=== PATIENT | female | born 1995 | race Caucasian/White ===

== ENCOUNTER 2021-04-06 19:22 | Emergency (ER) | payer OTHER, SELFPAY ==
[2021-04-06 19:04] VITALS: BP 153/80; PULSE 135; RESP 16; TEMP 37.6; O2SAT 96; BMI 21.6
--- NOTE | 2021-04-06 19:12 | HMH.EDGENADL ---
ED Disposition Clinical Impression: Right sided abdominal pain, Pyelonephritis Disposition: Left Against Medical Advice Condition on Discharge: Serious Instructions: DI for Acute Abdominal Pain Additional Instructions: Advised to follow-up with client services account manager and primary care provider as soon as possible, return to the emergency department if worsening or if desiring further treatment. Referrals: Provider,Referral, [Primary Care Provider] - - Critical Care Critical Care Time: No Attestation: On , the high probability of a clinically significant, sudden or life threatening deterioration of the following system(s) required my full and direct attention, intervention and personal management. The time I documented below is in addition to time spent performing reported procedures but includes the following listed in this critical care notation. Medical Decision Making - Corey Inquiry Pt receiving controlled substance: No Vital Signs: 04/06/21 19:04 04/06/21 19:45 Temperature 99.6 F 97.7 F Temperature Source Oral Oral Pulse Rate 85 Pulse Rate [Right Radial] 135 H Respiratory Rate 16 18 Blood Pressure 124/70 Blood Pressure [Right Arm] 153/80 H Blood Pressure Mean [Right Arm] 104 Blood Pressure Source Automatic Cuff Blood Pressure Source [Right Arm] Automatic Cuff Blood Pressure Position Sitting Blood Pressure Position [Right Arm] Supine 02 Sat by Pulse Oximetry 96 Oxygen Delivery Method Room Air Room Air - Lab Data Lab Results 04/06/21 19:08: Urine Color Dk yellow, Urine Appearance Turbid, Urine pH 5.5, Ur Specific [place] >= 1.030, Urine Protein 2+, Urine Glucose (UA) Negative, Urine Ketones Trace, Urine Blood 3+, Urine Nitrate Positive, Urine Bilirubin 2+ A, Urine Urobilinogen 0.2, Ur Leukocyte Esterase Trace, Urine RBC 20-50, Urine WBC 50-100, Ur Squamous Epith Cells Tntc, Urine Bacteria 4+ Orders (Tests/Meds): ED MEDICATIONS Generic Name Dose Route Start Last Admin Trade Name Freq PRN Reason Stop Dose Admin Ceftriaxone Sodium 1 gm/ 50 mls @ 100 mls/hr 04/06/21 19:45 Sodium Chloride IV 04/20/21 19:44 Q24H MINESH ORDERS Category Date Time Status Chest XR 2 view (NOT portable) [XR chest 2V] Stat Exams 04/06/21 19:21 Ordered Beta HCG, Quant [HCG,Quantitative] Stat Lab 04/06/21 19:30 Received C-Reactive Protein Stat Lab 04/06/21 19:30 Received Drug Screen,Urine Stat Lab 04/06/21 19:08 Received Erythrocyte Sedimentation Rate Stat Lab 04/06/21 19:30 Received Ethanol [Ethyl Alcohol] Stat Lab 04/06/21 19:30 Received Lactic Acid Stat Lab 04/06/21 19:30 Received Lipase Stat Lab 04/06/21 19:30 Received Procalcitonin Stat Lab 04/06/21 19:30 Received Urine , HCG Qual. Stat Lab 04/06/21 19:08 Received Blood Culture Stat Micro 04/06/21 19:20 Ordered Urine Culture Stat Micro 04/06/21 19:08 Received Medical Decision Narrative: Nurse reports that the patient is demanding to leave. She is now stating that she is not , she states I lost the baby and it is my fault . She wants to sign out AGAINST MEDICAL ADVICE. At this point, the only laboratory result that has been obtained is urine analysis. I advised her of diagnosis of urinary tract infection, likely pyelonephritis. I advised her that in the face of this can be serious, life-threatening, threatening. I also advised her that she could have pneumonia, she has refused a chest x-ray at this point. I also advised her that she could have a tubal which also could be life-threatening in threatening. She says she understands all this. She is able to repeat all of these risks back to me, expresses understanding, and says she still wants to sign out AGAINST MEDICAL ADVICE. She does not want the antibiotics that have been ordered and she wants to leave now. General Adult HPI - General Chief complaint: Abdominal Pain Stated complaint: Abdominal Pain Time Se
[2021-04-06 19:19] LABS: Microscopic, Urine URINE MICROSCOPIC (MICROSCOPIC)
[2021-04-06 19:25] LABS: Appearance,Urine TURBID (Clear); Blood, Urine 3+ (Negative); Color,Urine DK YELLOW (Yellow); Glucose,Urine (UA) Negative (Negative); Ketones,Urine TRACE (Negative); Leukocyte Esterase,Urine TRACE (Negative); Nitrate,Urine POSITIVE (Negative); PH,Urine 5.5 (5.0-8.5); Protein,Urine 2+ (Negative); Specific Gravity, Urine >= 1.030 (1.005-1.030); Urobilinogen,Urine 0.2 EU/dl (0.2)
[2021-04-06 19:29] LABS: Bilirubin,Urine 2+ (Negative)
[2021-04-06 19:31] LABS: Bacteria,Urine 4+ /lpf; RBC,Urine 20-50 #/hpf (0-3); Squamous Epithelial Cell,Urine TNTC #/hpf (0-5); WBC,Urine 50-100 #/hpf (0-3)
[2021-04-06 19:36] LABS: Benzodiazepines Screen,Urine Negative ng/ml (<200)
[2021-04-06 19:39] LABS: Methadone Screen,Urine Negative ng/ml (<300); Opiate Screen,Urine Positive ng/ml (<300)
--- NOTE | 2021-04-06 19:39 | PC.NURSE ---
Pt went to Xray and informed Casandra from radiology that she does not want to do the chest xray and she is no longer and lost the baby and she just wants to leave. MD Jamarcus informed and speaking with pt at this time.
[2021-04-06 19:40] LABS: Phencyclidine Screen,Urine Negative ng/ml (<25)
[2021-04-06 19:45] VITALS: BP 124/70; PULSE 85; RESP 18; TEMP 36.5; O2SAT 98
--- NOTE | 2021-04-06 19:47 | PC.NURSE ---
pt refused to allow radiology perform chest xray, denied being stating she thinks she lost it a few weeks ago. pt is alert, oriented, verbal with clear speech. md at bedside discussing needs with patient for meds and testing. pt is adamant she must go ahead and leave and replies verbatim back to md with what is going on with her possibly. assisted pt by giving a blanket and roustabout hand socks. pt ambulated out of facility, calling a family member for a ride prior to leaving.
[2021-04-06 19:50] LABS: Lactic Acid 0.8 mmol/L (0.7-2.1)
[2021-04-06 19:52] LABS: Ethyl Alcohol < 10 mg/dl (0-10)
[2021-04-06 19:55] LABS: Urine Pregnancy, HCG Qual. Negative (Negative)
[2021-04-06 19:59] LABS: Barbiturates Screen,Urine Negative ng/ml (<200)
[2021-04-06 20:01] LABS: Cannabinoid Screen,Urine Positive ng/ml (<50)
[2021-04-06 20:02] LABS: Cocaine Screen,Urine Negative ng/ml (<300)
[2021-04-06 20:07] LABS: Lipase 30 U/L (23-300)
[2021-04-06 20:18] LABS: C-Reactive Protein 26.4 mg/L (0-4)
[2021-04-06 20:22] LABS: Procalcitonin 0.244 ng/mL (0.0-2.0)
[2021-04-06 20:23] LABS: Erythrocyte Sedimentation Rate 48 mm/hr (0-20)
[2021-04-06 20:35] LABS: HCG,Quantitative < 2 mIU/ml (0-5.42)
[2021-04-06 20:44] LABS: Amphetamine/Metha Screen,Urine Positive ng/ml (<1000)
== END 2021-04-06 19:49 | disposition left against medical advice (07) ==
PROVIDERS: Emergency Provider Emergency Medicine
DX: N10 Acute pyelonephritis (principal); B96.20 Unspecified Escherichia coli [E. coli] as the cause of diseases classified elsewhere
CPT/HCPCS: 80305; 81001; 81025; 83605; 83690; 84145; 84702; 85651; 86140; 87086; 87088; 87186; 99282

== ENCOUNTER 2022-05-08 19:06 | Emergency (ER) | payer OTHER, SELFPAY ==
--- NOTE | 2022-05-08 19:23 | XR_ITS ---
PROCEDURE INFORMATION: Exam: XR Left Wrist Exam date and time: 05/08/2022 8:23 PM Age: 27 years old Clinical indication: Swelling; Wrist; Left; Additional info: Swelling, pain, ivdu TECHNIQUE: Imaging protocol: Radiologic exam of the Left wrist. Views: 3 or more views. COMPARISON: No relevant prior studies available. FINDINGS: Bones/joints: No visible fracture or dislocation. Soft tissues: No radiopaque foreign body There is diffuse cellulitis along the distal forearm extending into the metacarpal region IMPRESSION: 1. There is diffuse cellulitis along the distal forearm extending into the metacarpal region. 2. No visible fracture or dislocation.
--- NOTE | 2022-05-08 19:23 | XR_ITS ---
PROCEDURE INFORMATION: Exam: XR Left Forearm Exam date and time: 05/08/2022 8:25 PM Age: 27 years old Clinical indication: Swelling; Arm, lower; Left; Additional info: Swelling, pain, ivdu TECHNIQUE: Imaging protocol: Radiologic exam of the Left forearm. Views: 2 views. COMPARISON: CR XR WRIST LT MIN 3V 05/08/2022 8:23 PM FINDINGS: Bones/joints: No visible fracture or dislocation. Soft tissues: There is diffuse cellulitis and soft tissue swelling about the wrist and forearm. No radiopaque foreign body IMPRESSION: 1. No visible fracture or dislocation. 2. Diffuse cellulitis about the wrist and forearm.
--- NOTE | 2022-05-08 19:25 | CT_ITS ---
PROCEDURE INFORMATION: Exam: CT Left Upper Extremity With Contrast, Forearm Exam date and time: 05/08/2022 8:50 PM Age: 27 years old Clinical indication: Swelling; Arm, lower; Left; Additional info: Infected arm ivdu TECHNIQUE: Imaging protocol: Computed tomography of the Left upper extremity with contrast. Exam focused on the forearm. Radiation optimization: All CT scans at this facility use at least one of these dose optimization techniques: automated exposure control; mA and/or kV adjustment per patient size (includes targeted exams where dose is matched to clinical indication); or iterative reconstruction. Contrast material: ISOVUE; Contrast volume: 70 ml; Contrast route: IV; COMPARISON: CR XR FOREARM LT 2V 05/08/2022 8:25 PM FINDINGS: Bones/joints: There is a large filling defect along a superficial vein overlying the radial forearm presumably the cephalic vein. No acute fracture. No osseous erosive lesions Soft tissues: Circumferential soft tissue swelling about the forearm and wrist. Other findings: No radiopaque foreign body. No discrete collection IMPRESSION: 1. Cephalic vein thrombophlebitis 2. Cellulitis about the forearm and wrist without discrete abscess.
[2022-05-08 19:26] VITALS: RESP 26; TEMP 38.3; O2SAT 100; BMI 23.8
--- NOTE | 2022-05-08 19:29 | HMH.EDGENADL ---
Discharge Plan Disposition Patient Disposition: Admitted As Inpatient Condition: Serious Chief Complaint: Skin/Abscess/Foreign Body Prescriptions Prescriptions: No Action buprenorphine-naloxone 1 EACH tablet, sublingual 1 each SL DAILY Clinical Impressions Clinical Impression: Infected forearm, IVDU (intravenous drug user) Instructions Patient Instructions: DI for Skin Abscess Discharge ED Provider: Yahir Garcia General Adult HPI <Brodie Dickerson MD - Last Filed: 05/08/22 20:25> General Chief complaint: Skin/Abscess/Foreign Body Stated complaint: ao 05/07bITE BY DARIO l HAND /ARM Time Seen by Provider: 05/08/22 19:29 History of Present Illness HPI narrative: Patient is a 27-year-old female with past medical history of chronic infection followed by infectious disease at [facility] with resultant sores on her arms, IV drug use who presents emergency department for evaluation of left forearm swelling. Onset was acute, after injecting ice into her left wrist. She has had resultant pain, erythema, swelling spreading up the dorsal aspect of her forearm and wrist with associated limited active range of motion at the wrist secondary to pain. Patient denies other acute symptomatology. She states that she has had previous MRSA infections. She has multiple sores scattered about her bilateral upper extremities and when questioned states that that is due to her infectious disease process. Related Data Home Medications Medication Instructions Recorded Confirmed buprenorphine 8 mg-naloxone 2 mg 1 each SL DAILY Opiod Addiction 04/06/21 04/06/21 sublingual tablet Allergies Allergy/AdvReac Type Severity Reaction Status Date / Time No Known Allergies Allergy Verified 04/06/21 19:13 [facility] <Brodie Dickerson MD - Last Filed: 05/08/22 20:25> [facility] Disclaimer: The information contained in this section may have been updated after the patient was seen, as this information can be updated by other users. Social History (Updated 05/08/22 @ 20:25 by Brodie Dickerson MD) Smoking Status: Current every day smoker alcohol intake: current current occupational status: unemployed Travel in the last 8 weeks: None <Brodie Dickerson MD - Last Filed: 05/08/22 20:25> ROS Obtained: Yes Systems reviewed as appropriate & no additional complaints except as documented Physical Exam <Brodie Dickerson MD - Last Filed: 05/08/22 20:25> General General appearance: alert and in no apparent distress Head Head exam: atraumatic and normocephalic Eye Eye exam: Present PERRL and EOMI ENT ENT exam: Present mucous membranes moist Neck Neck exam: Present normal inspection Chest Chest inspection: Present normal inspection and symmetric chest wall rise Respiratory Respiratory exam: Present normal lung sounds bilaterally; Absent respiratory distress Cardiovascular Cardiovascular exam: Present normal rhythm and tachycardia Abdominal Exam Abdominal exam: Present soft; Absent tenderness Extremities Exam Extremities exam: Present other (Swelling, erythema, warmth of the dorsal aspect of the left forearm extending from the elbow to the metacarpophalangeal joints. Significant tenderness. Limited active range of motion at the wrist secondary to pain. 2+ left radial pulse.) Neurological Exam Neurological exam: Present alert and oriented X3 Psychiatric Psychiatric exam: Present normal affect Skin Skin exam: Present warm, dry, rash (Scattered discolored circumferential lesions about the bilateral upper extremities that are closed, erythematous.) and erythema Medical Decision Making <Brodie Dickerson MD - Last Filed: 05/08/22 20:25> Corey Inquiry Pt receiving controlled substance: No Vital Signs: 05/08/22 19:26 05/08/22 19:35 Temperature 101.0 F H Temperature Source Oral Pulse Rate 140 H Respiratory Rate 26 H 26 H Blood Pressure 156/95 H Blood Pressure Source Automatic Cuff Blood Pressure Posit
[2022-05-08 19:35] VITALS: BP 156/95; PULSE 140; RESP 26; O2SAT 100
--- NOTE | 2022-05-08 19:35 | PC.NURSE ---
MD discussed plan of care at length with patient. Patient is alert,oriented, denies having any use of any illicit drugs in the last 12 hours. Patient is tearful, states she doesn't want to stay despite being counseled re: repercussions of failure to complete recommended care. Discussion including danger to or loss of life or limb, cardiac complications arising from continued self-injection, and general feelings of unwell were discussed at length while patient continued to reiterate she didn't want to stay as an inpatient for treatment. 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 MD explained at length that we needed to obtain blood cultures/wound cultures and radiographic scans to determine level of severity of condition. Explained that typical standard of care involves the administration of IV antibiotics as PO antibiotics are not effective. Patient agrees to the blood draw, initiation of IV therapy and care implementation to start.
--- NOTE | 2022-05-08 19:39 | CT_ITS ---
PROCEDURE INFORMATION: Exam: CTA Chest With Contrast Exam date and time: 05/08/2022 8:43 PM Age: 27 years old Clinical indication: Fever and other: Left arm swelling; Additional info: Iv drug use, significant arm infection, SOA TECHNIQUE: Imaging protocol: Computed tomographic angiography of the chest with contrast. 3D rendering (Not supervised by radiologist): MIP and/or 3D reconstructed images were created by the technologist. Radiation optimization: All CT scans at this facility use at least one of these dose optimization techniques: automated exposure control; mA and/or kV adjustment per patient size (includes targeted exams where dose is matched to clinical indication); or iterative reconstruction. Contrast material: ISO 370; Contrast volume: 70 ml; Contrast route: INTRAVENOUS (IV); COMPARISON: No relevant prior studies available. FINDINGS: Pulmonary arteries: No evidence of filling defects to suggest pulmonary emboli. The RV: LV ratio is less than 1. Aorta: Aorta is nonaneurysmal. Lungs: No evidence of airspace opacity or interlobular septal thickening. Subsegmental lingular atelectasis noted. There are scattered subpleural pulmonary nodules measuring up to 2 mm in the lower lobe. Pleural spaces: No pneumothorax. No pleural effusion. Heart: No cardiomegaly or pericardial effusion. The left atrial appendage is normal. Coronary arteries: No significant coronary artery calcifications. Lymph nodes: No evidence of mediastinal or hilar lymphadenopathy. Bones/joints: Unremarkable. No acute fracture. Soft tissues: Unremarkable. IMPRESSION: 1. No pulmonary embolus 2. Nonspecific 2 mm left lower lobe pulmonary nodules, favored to be of inflammatory/infectious etiologies. (series 7 image 62, 66)
[2022-05-08 19:50] LABS: Basophils # 0.1 K/mm3 (0-0.2); Basophils % 0.5 % (0.1-2.0); Eosinophils # 0.1 K/mm3 (0.0-0.4); Eosinophils % 0.3 % (0.1-12.0); Hematocrit 41.2 % (37.0-47.0); Hemoglobin 13.2 g/dL (12.2-16.2); Lymphocytes # 1.2 K/mm3 (0.7-4.5); Lymphocytes % 7.6 % (10-50); Mean Corpuscular HGB Conc 31.9 g/dL (31.8-35.4); Mean Corpuscular Hemoglobin 27.3 pg (27.0-31.2); Mean Corpuscular Volume 85.5 fl (81-99); Mean Platelet Volume 7.8 fl (7.4-10.4); Monocytes # 0.7 K/mm3 (0.1-1.0); Monocytes % 4.4 % (1.7-9.3); Neutrophils # 13.4 K/mm3 (1.8-7.8); Neutrophils % 87.2 % (37.0-80.0); Platelet Count 390 K/mm3 (142-424); Red Blood Count 4.82 M/mm3 (4.20-5.40); White Blood Count 15.4 K/mm3 (4.8-10.8)
[2022-05-08 20:00] LABS: Chloride 101 mmol/L (98-107); MANUAL DIFFERENTIAL MANUAL DIFFERENTIAL (MANUAL DIFF); Sodium 138 mmol/L (136-145)
[2022-05-08 20:03] LABS: Alanine Aminotransferase 45 U/L (12-78); Albumin Level 4.1 g/dl (3.5-5.0); Albumin/Globulin Ratio 1.1 (1.1-1.8); Alkaline Phosphatase 134 U/L (38-126); Aspartate Amino Transferase 37 U/L (14-36); Bilirubin,Total 0.5 mg/dl (0.2-1.3); Blood Urea Nitrogen 8 mg/dl (7-17); Carbon Dioxide 29 mmol/L (22.0-30.0); Creatinine Clearance Estimated 112 mL/min (50-200); Estimated Glomerular Filt Rate 100 ml/min (>60); GFR (African American) 121 ML/MIN (>60); Globulin 3.9 g/dL (1.3-3.2)
[2022-05-08 20:04] LABS: Glucose 111 mg/dl (74-100); Lactic Acid 1.1 mmol/L (0.7-2.1)
[2022-05-08 20:09] LABS: C-Reactive Protein 146.3 mg/L (0-4); HCG Qualitative, Serum Negative (Negative)
--- NOTE | 2022-05-08 20:20 | ECG_ITS ---
APPROVED REPORT Exam: Resting ECG HR:124 bpm ECG Measurements Heart Rate 124 AXES WI 113 P 70 QRSd 125 QRS 103 QT 270 T 7 QTc 344 Conclusion SINUS TACHYCARDIA WITH SHORT WI INTERVAL RIGHT AXIS DEVIATION [QRS AXIS > 100] RIGHT BUNDLE BRANCH BLOCK [120+ ms QRS DURATION, UPRIGHT V1, 40+ ms S IN I/aVL/V4/V5/V6] ABNORMAL ECG UNCONFIRMED REPORT Electronically signed by : Kashmir Torres MD 05/09/2022 10:07:38
[2022-05-08 20:21] LABS: Erythrocyte Sedimentation Rate 30 mm/hr (0-20)
[2022-05-08 20:29] LABS: Lymphocytes % 6 % (10-50); Monocytes % 3 % (2-9); Neutrophils % 86 % (42-76); Platelet Estimate Normal; RBC Morphology Normal; Total Cells Counted 100
[2022-05-08 21:29] LABS: Benzodiazepines Screen,Urine Negative ng/ml (<200)
[2022-05-08 21:30] LABS: Coronavirus 19, PCR Not Detected (NotDetected); Influenza A, PCR Not Detected (NotDetected); Influenza B, PCR Not Detected (NotDetected)
[2022-05-08 21:30] LABS: Barbiturates Screen,Urine Negative ng/ml (<200)
[2022-05-08 21:31] LABS: Cannabinoid Screen,Urine Negative ng/ml (<50); Cocaine Screen,Urine Negative ng/ml (<300)
[2022-05-08 21:32] LABS: Methadone Screen,Urine Negative ng/ml (<300); Opiate Screen,Urine Negative ng/ml (<300)
[2022-05-08 21:33] LABS: Phencyclidine Screen,Urine Negative ng/ml (<25)
--- NOTE | 2022-05-08 22:02 | PC.NURSE ---
Patient admitted to [address] Wolf with dx of cellulititis.
[2022-05-08 22:07] LABS: Amphetamine/Metha Screen,Urine Positive ng/ml (<1000)
--- NOTE | 2022-05-08 22:16 | EXP.HP ---
History of Present Illness *Admission Date: 05/08/22 *Reason for visit:: Left forearm swelling *History of present illness: This is a 27-year-old female with past medical history of substance abuse including IV drug use who presents emergency department today with complaints of left forearm pain. She reports injecting methamphetamines yesterday and developed redness and swelling to her left forearm. She does have a history of IV drug abuse and states that she has been abstinent for approximately 4 months until yesterday. She does endorse prior opioid abuse and is on Suboxone. She complains of body aches, chills, pain of her left forearm. She also endorses cough and congestion that has been ongoing for several days. Emergency department work-up significant for heart rate in the 140s and temperature of 101 upon arrival. Inflammatory markers elevated with a CRP of 146 and ESR of 30. She is noted to have leukocytosis with a white count of 15. Electrolytes and kidney function within normal limits. UDS positive for methamphetamines. COVID and flu are negative. CT imaging of her left forearm and chest reveals cellulitis with possible superficial cephalic thrombophlebitis of the left forearm. Chest CT notable for basilar nodules that could reflect infectious versus inflammatory process. EKG with new right bundle branch block. She received 1 L of normal saline in the emergency department as well as broad-spectrum antibiotic coverage with vancomycin and Zosyn and will be admitted to the hospital service for further evaluation and management. On my assessment patient is still complaining of left arm pain but refuses narcotic administration. She was medicated with Tylenol and Toradol prior to admission and reports feeling somewhat better. It appears that her tachycardia has improved mildly with heart rate now in the 120s. Spoke with patient about concerns for further infection regarding her pulmonary nodules, possible septic emboli and possible endocarditis given IV drug use. Despite information given to her, she is adamant about leaving the hospital this evening. Strongly advised patient to stay in the hospital for further IV antibiotic administration and further testing to rule out life-threatening infections. Risk and benefits were discussed with patient and she was able to verbalize understanding of these risks. At the conclusion of my assessment, patient is still contemplating staying overnight in the hospital or leaving AMA. [facility] Disclaimer: The information contained in this section may have been updated after the patient was seen, as this information can be updated by other users. Social History Smoking Status: Current every day smoker alcohol intake: current current occupational status: unemployed Travel in the last 8 weeks: None Review of Systems Constitutional Constitutional: Reports as per HPI Eyes Eyes: Reports system reviewed and no additional complaints, except as documented ENT Ears, Nose, Mouth, and Throat: Reports system reviewed and no additional complaints, except as documented *Cardiovascular Cardiovascular: Denies chest pain and Reports rapid heart rate *Respiratory Respiratory: Reports chest congestion and Reports cough *Gastrointestinal Gastrointestinal: Reports system reviewed and no additional complaints, except as documented *Genitourinary Genitourinary: Reports system reviewed and no additional complaints, except as documented *Musculoskeletal Musculoskeletal: Reports myalgias Integumentary/Breasts Skin/Breast: Reports system reviewed and no additional complaints, except as documented *Neurologic Neurologic: Reports system reviewed and no additional complaints, except as documented Psychiatric Psychiatric: Reports system reviewed and no additional complaints, except as documented Endocrine Endocrine: Reports system reviewed and no additional complaints, e
--- NOTE | 2022-05-08 22:27 | PC.NURSE ---
pt states she can't stay to be admitted. pt said she will return after she goes and retrieve her belongings. Dr Garcia and me both told risk of leaving AMA. pt signed AMA form
[2022-05-08 22:29] VITALS: BP 147/78; PULSE 124; RESP 16; TEMP 37.1; O2SAT 100
[2022-05-08 22:34] LABS: Appearance,Urine SL CLOUDY (Clear); Bilirubin,Urine Negative (Negative); Blood, Urine 1+ (Negative); Color,Urine YELLOW (Yellow); Glucose,Urine (UA) Negative (Negative); Ketones,Urine Negative (Negative); Leukocyte Esterase,Urine Negative (Negative); Nitrate,Urine POSITIVE (Negative); Protein,Urine 2+ (Negative); Specific Gravity, Urine >= 1.030 (1.005-1.030); Urobilinogen,Urine 0.2 EU/dl (0.2)
[2022-05-08 22:35] LABS: Microscopic, Urine URINE MICROSCOPIC (MICROSCOPIC)
--- NOTE | 2022-05-08 22:37 | EXP.DC.SUM ---
General Admission date:: 05/08/2022 Discharge date: 05/08/22 HPI HPI HPI: This is a 27-year-old female with past medical history of substance abuse including IV drug use who presents emergency department today with complaints of left forearm pain. She reports injecting methamphetamines yesterday and developed redness and swelling to her left forearm. She does have a history of IV drug abuse and states that she has been abstinent for approximately 4 months until yesterday. She does endorse prior opioid abuse and is on Suboxone. She complains of body aches, chills, pain of her left forearm. She also endorses cough and congestion that has been ongoing for several days. Emergency department work-up significant for heart rate in the 140s and temperature of 101 upon arrival. Inflammatory markers elevated with a CRP of 146 and ESR of 30. She is noted to have leukocytosis with a white count of 15. Electrolytes and kidney function within normal limits. UDS positive for methamphetamines. COVID and flu are negative. CT imaging of her left forearm and chest reveals cellulitis with possible superficial cephalic thrombophlebitis of the left forearm. Chest CT notable for basilar nodules that could reflect infectious versus inflammatory process. EKG with new right bundle branch block. She received 1 L of normal saline in the emergency department as well as broad-spectrum antibiotic coverage with vancomycin and Zosyn and will be admitted to the hospital service for further evaluation and management. On my assessment patient is still complaining of left arm pain but refuses narcotic administration. She was medicated with Tylenol and Toradol prior to admission and reports feeling somewhat better. It appears that her tachycardia has improved mildly with heart rate now in the 120s. Spoke with patient about concerns for further infection regarding her pulmonary nodules, possible septic emboli and possible endocarditis given IV drug use. Despite information given to her, she is adamant about leaving the hospital this evening. Strongly advised patient to stay in the hospital for further IV antibiotic administration and further testing to rule out life-threatening infections. Risk and benefits were discussed with patient and she was able to verbalize understanding of these risks. At the conclusion of my assessment, patient is still contemplating staying overnight in the hospital or leaving AMA. Hospital Course Hospital Course Hospital Course: Please let this serve as DC summary/AMA summary Unfortunately despite myself, ED staff and ED provider providing patient with information regarding risks and benefits to include life or , patient still decided to leave the hospital AMA. Please see complete H&P for initial assessment and plan. At the time of her AMA, she was of sound mind and body and was able to make this informed decision. Exam Data for Last 24 hours Vital signs and Labs for Last 24 Hours: Temp Pulse Resp BP Pulse Ox 98.7 F 124 H 16 147/78 H 100 05/08/22 22:29 05/08/22 22:29 05/08/22 22:29 05/08/22 22:29 05/08/22 19:35 Laboratory Results - last 24 hr 05/08/22 19:35: WBC 15.4 H, RBC 4.82, Hgb 13.2, Hct 41.2, MCV 85.5, MCH 27.3, MCHC 31.9, RDW 15.0, Plt Count 390, MPV 7.8, Neut % (Auto) 87.2 H, Lymph % (Auto) 7.6 L, [place] % (Auto) 4.4, Eos % (Auto) 0.3, Baso % (Auto) 0.5, Neut # (Auto) 13.4 H, Lymph # (Auto) 1.2, [place] # (Auto) 0.7, Eos # (Auto) 0.1, Baso # (Auto) 0.1, Total Counted 100, Neutrophils % (Manual) 86 H, Band Neutrophils % 5.0, Lymphocytes % (Manual) 6 L, Monocytes % (Manual) 3, Platelet Estimate Normal, RBC Morphology Normal 05/08/22 19:35: Sodium 138, Potassium 4.0, Chloride 101, Carbon Dioxide 29, Anion Gap 12.0, BUN 8, Creatinine 0.70, Estimated Creat Clear 112, Estimated GFR 100, Est GFR ( Amer) 121, Glucose 111 H, Calcium 10.0, Total Bilirubin 0.5, AST 37 H, ALT 45, Alkaline Phosphatase 134 H, C-Reactive Prote
[2022-05-08 22:47] LABS: Bacteria,Urine 4+ /lpf
--- NOTE | 2022-05-11 09:37 | MR_ITS ---
FINAL REPORT CLINICAL HISTORY: ABSCESS. SWELLING AND REDDNESS FROM HAND TO DISTAL FOREARM. NO CONTRAST GIVEN. FINDINGS: Multiplanar MR imaging of the left forearm was performed without contrast. Motion artifact on all sequences limits exam sensitivity. There is no evidence of fracture or bone marrow edema. No bony mass is identified. A moderate size elbow joint effusion is present. There is abnormal T2 signal in the forearm musculature which may represent edema or myositis. There is diffuse subcutaneous edema or cellulitis. There is a 24 mm fluid collection in the antecubital fossa as well as a 20 mm subcutaneous fluid collection overlying the olecranon. These are nonspecific in favored represent seromas. Abscess considered less likely. IMPRESSION: Edema or myositis of the forearm musculature. 24 mm and 22 mm fluid collections which are nonspecific, favor seroma is over abscess. Reviewed, Interpreted and Dictated by Josh Salgado III, MD Transcribed by Naomy Tinajero Authenticated and [facility]
== END 2022-05-08 22:33 | disposition left against medical advice (07) ==
PROVIDERS: Emergency Medicine; Nurse Practitioner Acute Care; Emergency Provider Emergency Medicine
DX: N39.0 Urinary tract infection, site not specified (principal); A41.9 Sepsis, unspecified organism
CPT/HCPCS: 71275; 73090; 73110; 73201; 80053; 80305; 81001; 83605; 84703; 85007; 85025; 85651; 86140; 87040; 87086; 93005; C9803; J3370; Q9967; U0003; U0005

== ENCOUNTER 2022-05-09 15:31 | Inpatient (IN) | payer OTHER, SELFPAY ==
[2022-05-09] VITALS (8 sets, daily range): BP systolic 99–133; BP diastolic 60–97; PULSE 85–110; RESP 18–20; TEMP 36.9–37.1; O2SAT 98–100; BMI 24.5
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
[2022-05-09 16:36] LABS: Chloride 98 mmol/L (98-107)
[2022-05-09 16:37] LABS: Basophils # 0.1 K/mm3 (0-0.2); Basophils % 0.4 % (0.1-2.0); Eosinophils # 0.2 K/mm3 (0.0-0.4); Hematocrit 35.7 % (37.0-47.0); Lymphocytes # 1.8 K/mm3 (0.7-4.5); Lymphocytes % 9.4 % (10-50); Mean Corpuscular Hemoglobin 27.5 pg (27.0-31.2); Mean Corpuscular Volume 85.9 fl (81-99); Mean Platelet Volume 7.4 fl (7.4-10.4); Monocytes % 5.4 % (1.7-9.3); Neutrophils # 15.9 K/mm3 (1.8-7.8); Neutrophils % 83.8 % (37.0-80.0); Platelet Count 295 K/mm3 (142-424); Potassium 3.8 mmoL/L (3.5-5.1); Red Blood Count 4.15 M/mm3 (4.20-5.40); Sodium 132 mmol/L (136-145)
[2022-05-09 16:39] LABS: Alanine Aminotransferase 53 U/L (12-78); Aspartate Amino Transferase 52 U/L (14-36); Blood Urea Nitrogen 11 mg/dl (7-17); Creatinine Clearance Estimated 131 mL/min (50-200); Estimated Glomerular Filt Rate 120 ml/min (>60); GFR (African American) 145 ML/MIN (>60)
[2022-05-09 16:40] LABS: Albumin Level 3.7 g/dl (3.5-5.0); Alkaline Phosphatase 132 U/L (38-126); Anion Gap 7.8 mEq/L (5-15); Bilirubin,Total 0.5 mg/dl (0.2-1.3); Calcium 9.6 mg/dl (8.4-10.2); Carbon Dioxide 30 mmol/L (22.0-30.0); Globulin 3.6 g/dL (1.3-3.2); Glucose 93 mg/dl (74-100); MANUAL DIFFERENTIAL MANUAL DIFFERENTIAL (MANUAL DIFF); Total Protein,Serum 7.3 g/dl (6.3-8.2)
--- NOTE | 2022-05-09 16:44 | PC.NURSE ---
Dr Ricketts speaking with Hospitalist
[2022-05-09 16:45] LABS: C-Reactive Protein 264.7 mg/L (0-4)
[2022-05-09 16:56] LABS: Lymphocytes % 8 % (10-50); Monocytes % 5 % (2-9); Neutrophils % 87 % (42-76); Total Cells Counted 100
[2022-05-09 16:58] LABS: Platelet Estimate Normal; RBC Morphology Normal
[2022-05-09 17:06] LABS: Erythrocyte Sedimentation Rate 83 mm/hr (0-20)
[2022-05-09 17:22] LABS: Hemoglobin 11.5 g/dL (12.2-16.2)
--- NOTE | 2022-05-09 18:03 | EXP.HP ---
History of Present Illness *Admission Date: 05/09/22 *Reason for visit:: Chief complaint: Left upper extremity edema *History of present illness: This is a 27-year-old female that presents to [facility] emergency department after leaving the ED AMA yesterday. Her past medical history is significant for methamphetamine dependence and intravenous drug use disorder, tobacco dependence, kidney stones and medical noncompliance.? She reports left forearm pain that started after injecting methamphetamine into her arm I missed the vein. ? She reports injecting methamphetamines 05/07/2022 and developed redness and swelling to her left forearm.? She describes associated increasing edema and erythema with excoriations. She reports that it is painful to lift her arm. She reports associated fever and chills but no nausea, vomiting or diarrhea. She reports no confusion or hallucinations. She is started experiencing a croupy cough but no acute dyspnea. She reports that she is unvaccinated to COVID?19 or influenza. She describes a chronic history of illicit drug use and intravenous drug use. She has 3 children that have been removed from her custody secondary to the chronicity of her addiction. The children ages are 7, 4 and 2. In the ED a CT of the left upper extremity did not identify an abscess. Her CRP and ESR were elevated and she has a leukocytosis. Her urine drug screen is positive for methamphetamines and negative for opioids. Electrolytes and renal function are normal. Her hCG is negative. Her lactic acid was negative. Blood cultures have been acquired on both ED presentations. CTA of the chest shows left lower lobe septic emboli. She has received IV vancomycin and Rocephin with no adverse events. [facility] Medical History (Updated 05/09/22 @ 18:19 by Kelechi Wolf MD) IVDU (intravenous drug user) Kidney stones Medical non-compliance Methamphetamine addiction Surgical History (Updated 05/09/22 @ 18:19 by Kelechi Wolf MD) H/O cystoscopy H/O elbow surgery Hx of tonsillectomy Previous section S/P cholecystectomy Family History (Updated 05/09/22 @ 18:19 by Kelechi Wolf MD) Mother Diabetes Heart attack Father No problems noted. Social History Smoking Status: Current every day smoker alcohol intake: current current occupational status: unemployed Travel in the last 8 weeks: None Review of Systems Review of Systems Review of systems:: pertinent systems reviewed and negative unless documented below Constitutional Constitutional: Reports chills and Reports fever(s) *Cardiovascular Cardiovascular: Denies chest pain and Denies dyspnea *Respiratory Respiratory: Denies dyspnea *Gastrointestinal Gastrointestinal: Denies nausea and Denies vomiting Meds Home Medications and Allergies Home Medications Medication Instructions Recorded Confirmed Type No Known Home Medications 05/09/22 05/09/22 History New Prescriptions to Start Prescriptions: Allergies Allergy/AdvReac Type Severity Reaction Status Date / Time No Known Allergies Allergy Verified 04/06/21 19:13 Exam Data for Last 24 hours Vital signs and Labs for Last 24 Hours: Temp Pulse Resp BP Pulse Ox 98.5 F 104 H 18 110/67 99 05/09/22 15:55 05/09/22 17:00 05/09/22 17:00 05/09/22 17:00 05/09/22 17:00 Laboratory Results - last 24 hr 05/09/22 16:22: WBC 19.0 H, RBC 4.15 L, Hgb 11.5 L D, Hct 35.7 L, MCV 85.9, MCH 27.5, MCHC 32.0, RDW 15.0, Plt Count 295, MPV 7.4, Neut % (Auto) 83.8 H, Lymph % (Auto) 9.4 L, [place] % (Auto) 5.4, Eos % (Auto) 1.0, Baso % (Auto) 0.4, Neut # (Auto) 15.9 H, Lymph # (Auto) 1.8, [place] # (Auto) 1.0, Eos # (Auto) 0.2, Baso # (Auto) 0.1, Total Counted 100, Neutrophils % (Manual) 87 H, Lymphocytes % (Manual) 8 L, Monocytes % (Manual) 5, Platelet Estimate Normal, RBC Morphology Normal, ESR 83 H 05/09/22 16:22: Sodium 132 L, P
[2022-05-09 18:06] LABS: Coronavirus 19, PCR Not Detected (NotDetected); Influenza A, PCR Not Detected (NotDetected); Influenza B, PCR Not Detected (NotDetected)
--- NOTE | 2022-05-09 18:26 | PC.NURSE ---
called report zi oenill rn
--- NOTE | 2022-05-09 20:10 | PC.NURSE ---
pt was walking to the lobby. i stopped her to ask where she was going she stated she had been here long enough she was leaving. pt states that she has been here in pain no one is helping and she got the antibiotics and she is done. she allowed me to take ouot her IV stated she knew the risks involved. pt mother tried to convince her to stay. pt declined. pt left with her mother private [email or web address] hospitalist notified.
--- NOTE | 2022-05-09 20:43 | PC.NURSE ---
pt rerturned to the lobby with mother and decided she wanted to stay. pt was taken directly to the floor previous orders stand.
--- NOTE | 2022-05-09 21:03 | PC.NURSE ---
Pt arrived to floor via wheelchair @ 2039.
--- NOTE | 2022-05-09 22:23 | PC.NURSE ---
Pt to floor @2039.. no IV access. Multiple RN's attempted IV and were unable to get access. Unable to give IV antibiotics/fluids at this time. Notified Kenna PIERCE
[2022-05-10] VITALS: BP 120/59; PULSE 124; RESP 18; TEMP 38.4; O2SAT 99
[2022-05-10 02:00] VITALS: PULSE 110; TEMP 36.8
[2022-05-10 04:00] VITALS: BP 137/89; PULSE 99; RESP 18; TEMP 37.4; O2SAT 99
--- NOTE | 2022-05-10 04:03 | PC.NURSE ---
pt admitted this shift. she is a&oX4, but has been very drowsy most of shift. Was medicated for fever prn per JUL. She ambulates independently to bathroom. Left arm very swollen, red, and warm.
[2022-05-10 05:00] VITALS: BMI 30.7
[2022-05-10 08:00] VITALS: BP 129/77; PULSE 101; RESP 14; TEMP 37.9; O2SAT 98
--- NOTE | 2022-05-10 08:08 | PC.NURSE ---
Spoke with Dr. Corona regarding consult.
--- NOTE | 2022-05-10 08:15 | P.CONPHA_ITS ---
Pharmacy Consult Date: 05/10/22 Time: 08:15 Referring provider: DR. SKAGGS Reason for Consult:: VANCOMYCIN Allergies Allergy/AdvReac Type Severity Reaction Status Date / Time No Known Allergies Allergy Verified 04/06/21 19:13 Home Medications Medication Instructions Recorded Confirmed Type No Known Home Medications 05/09/22 05/09/22 History New Prescriptions to Start Prescriptions: Height: 1.55 m Weight: 73.754 kg Laboratory Results:: Laboratory Results - last 24 hr 05/09/22 16:22: WBC 19.0 H, RBC 4.15 L, Hgb 11.5 L D, Hct 35.7 L, MCV 85.9, MCH 27.5, MCHC 32.0, RDW 15.0, Plt Count 295, MPV 7.4, Neut % (Auto) 83.8 H, Lymph % (Auto) 9.4 L, [place] % (Auto) 5.4, Eos % (Auto) 1.0, Baso % (Auto) 0.4, Neut # (Auto) 15.9 H, Lymph # (Auto) 1.8, [place] # (Auto) 1.0, Eos # (Auto) 0.2, Baso # (Auto) 0.1, Total Counted 100, Neutrophils % (Manual) 87 H, Lymphocytes % (Manual) 8 L, Monocytes % (Manual) 5, Platelet Estimate Normal, RBC Morphology Normal, ESR 83 H 05/09/22 16:22: Sodium 132 L, Potassium 3.8, Chloride 98, Carbon Dioxide 30, Anion Gap 7.8, BUN 11 D, Creatinine 0.60, Estimated Creat Clear 131, Estimated GFR 120, Est GFR ( Amer) 145, Glucose 93, Calcium 9.6, Total Bilirubin 0.5, AST 52 H D, ALT 53, Alkaline Phosphatase 132 H, C-Reactive Protein 264.7 H, Total Protein 7.3, Albumin 3.7, Globulin 3.6 H, Albumin/Globulin Ratio 1.0 L 05/09/22 16:22: Lactate 1.0 05/09/22 17:57: SARS-CoV-2 (PCR) Not detected, Influenza A Untype (PCR) Not detected, Influenza Type B (PCR) Not detected Medical History: Medical History (Updated 05/09/22 @ 18:19 by Kelechi Skaggs MD) IVDU (intravenous drug user) Kidney stones Medical non-compliance Methamphetamine addiction Assessment and Plan Assessment and plan all Dx Assessment and Plan for all problems:: Pharmacokinetic dosing service Age: 27 yo Serum creatinine: 0.6 mg/dL Height: 61.0 Inches Weight (kg): 74 Assessment: IBW (kg): 47.80 Dosing wt(kg): 74 Estimated Creatinine clearance (ml/min): 106.3 CRCL method: Cockcroft and Gault using ibw(default). Drug selected: Vancomycin Loading dose (mg): 0 Vd (liters): 59.2 (factor used: 0.8 L/kg) Nayan (hr-1): 0.093 Half life (hrs): 7.45 Recommended dose: 1500 mg Interval: 12 hrs Infusion time (hrs): 2.0 Predicted peak (mcg/mL): 34.4 Predicted trough (mcg/mL): 13.57 Total body weight is being used for vancomycin dosing. Recommendations: Give Vancomycin 1500 mg q 12 hrs with an expected Cpeak of 34.4 mcg/ml and an expected Ctrough of 13.57 mcg/ml. ----Vanco only - ignore for aminoglycosides----- CLvanco= 5.51 L/hr AUC 0-24 /TORIE Data: TORIE 0.5 mcg/mL: AUC/TORIE: 1088.9 TORIE 1.0 mcg/mL: AUC/TORIE: 544.5 --------- TORIE 1.5 mcg/mL: AUC/TORIE: 363.0 TORIE 2.0 mcg/mL: AUC/TORIE: 272.2
--- NOTE | 2022-05-10 09:00 | EXP.PN ---
Subjective *Date: 05/10/22 *Time: 09:00 Interval history: Date of service 05/10/2022 The patient reports no acute events since admission. I am accompanied by the patient's nurse Kalyn. Nursing staff report a T-max of 101.1 with ongoing tachycardia but stable blood pressures and improved respiratory rates. She is saturating appropriately on room air. She is tolerating her IV antibiotic with no adverse events. Nursing staff are inquiring about a PICC line. Orthopedics is to to see the patient. MRI of the left upper extremity is pending. Her morning labs are pending. Exam Data for Last 24 hours Vital signs and Labs for Last 24 Hours: Temp Pulse Resp BP Pulse Ox 100.2 F H 101 H 14 129/77 98 05/10/22 08:00 05/10/22 08:00 05/10/22 08:00 05/10/22 08:00 05/10/22 08:00 Laboratory Results - last 24 hr 05/09/22 16:22: WBC 19.0 H, RBC 4.15 L, Hgb 11.5 L D, Hct 35.7 L, MCV 85.9, MCH 27.5, MCHC 32.0, RDW 15.0, Plt Count 295, MPV 7.4, Neut % (Auto) 83.8 H, Lymph % (Auto) 9.4 L, [place] % (Auto) 5.4, Eos % (Auto) 1.0, Baso % (Auto) 0.4, Neut # (Auto) 15.9 H, Lymph # (Auto) 1.8, [place] # (Auto) 1.0, Eos # (Auto) 0.2, Baso # (Auto) 0.1, Total Counted 100, Neutrophils % (Manual) 87 H, Lymphocytes % (Manual) 8 L, Monocytes % (Manual) 5, Platelet Estimate Normal, RBC Morphology Normal, ESR 83 H 05/09/22 16:22: Sodium 132 L, Potassium 3.8, Chloride 98, Carbon Dioxide 30, Anion Gap 7.8, BUN 11 D, Creatinine 0.60, Estimated Creat Clear 131, Estimated GFR 120, Est GFR ( Amer) 145, Glucose 93, Calcium 9.6, Total Bilirubin 0.5, AST 52 H D, ALT 53, Alkaline Phosphatase 132 H, C-Reactive Protein 264.7 H, Total Protein 7.3, Albumin 3.7, Globulin 3.6 H, Albumin/Globulin Ratio 1.0 L 05/09/22 16:22: Lactate 1.0 05/09/22 17:57: SARS-CoV-2 (PCR) Not detected, Influenza A Untype (PCR) Not detected, Influenza Type B (PCR) Not detected I & O for Last 24 hours: Intake & Output 05/07/22 05/08/22 05/09/22 05/10/22 23:59 23:59 23:59 23:59 Intake Total 690 / 690 Output Total 0 / 0 Balance 690 / 690 Weight 72.257 kg 73.754 kg Constitutional Constitutional: no acute distress, obese, chronically ill appearing, disheveled and cooperative *Routine HEENT Exam Head: Present normocephalic Eye: Present EOMI ENT: Present mucous membranes moist; Absent dentition normal *Routine Neck Exam Neck: Present supple, full ROM and trachea midline; Absent lymphadenopathy *Routine Respiratory Exam Respiratory: Present rhonchi, normal respiratory effort and symmetric chest movement; Absent respiratory distress *Routine Cardiovascular Exam Cardiovascular: Present tachycardia; Absent murmur *Routine Abdominal Exam Abdominal: Present soft and normoactive bowel sounds; Absent tenderness *Routine Extremities Exam Extremities: Present pulses intact and normal capillary refill Comments: Left upper extremity with decreased range of motion, edema from the hand to her biceps area, multiple excoriations, erythema, tender along the cephalic vein distribution *Routine Skin Exam Skin: Present warm, normal turgor and wounds; Absent rash *Routine Neurological Exam Neurological: Present alert, oriented X3, moving all extremities, normal tone, vision grossly intact, hearing grossly intact and normal speech Routine Psychiatric Exam Psychiatric: Present normal affect, normal thought process, cooperative, good insight and good judgment Assessment and Plan *Assessment and plan (1) Sepsis: Status: Acute Category: Medical Code(s): A41.9 - Sepsis, unspecified organism (2) Cellulitis of left upper extremity: Status: Acute Category: Medical Code(s): L03.114 - Cellulitis of left upper limb (3) IVDU (intravenous drug user): Status: Inactive Category: Social Hx Code(s): F19.90 - Other psychoactive substance use, unspecified, uncomplicated (4) Methamphetamine addiction: Status: Acute Category: Medical C
[2022-05-10 11:02] LABS: Basophils # 0.1 K/mm3 (0-0.2); Basophils % 0.5 % (0.1-2.0); Eosinophils # 0.3 K/mm3 (0.0-0.4); Eosinophils % 2.3 % (0.1-12.0); Hematocrit 31.6 % (37.0-47.0); Hemoglobin 10.5 g/dL (12.2-16.2); Lymphocytes # 1.6 K/mm3 (0.7-4.5); Lymphocytes % 11.8 % (10-50); Mean Corpuscular HGB Conc 33.2 g/dL (31.8-35.4); Mean Corpuscular Hemoglobin 27.7 pg (27.0-31.2); Mean Corpuscular Volume 83.7 fl (81-99); Mean Platelet Volume 8.1 fl (7.4-10.4); Monocytes # 0.7 K/mm3 (0.1-1.0); Monocytes % 5.4 % (1.7-9.3); Neutrophils # 10.5 K/mm3 (1.8-7.8); Platelet Count 300 K/mm3 (142-424); Red Blood Count 3.77 M/mm3 (4.20-5.40); White Blood Count 13.1 K/mm3 (4.8-10.8)
[2022-05-10 11:12] LABS: Anion Gap 7.7 mEq/L (5-15); Blood Urea Nitrogen 9 mg/dl (7-17); Calcium 8.6 mg/dl (8.4-10.2); Carbon Dioxide 24 mmol/L (22.0-30.0); Chloride 107 mmol/L (98-107); Creatinine Clearance Estimated 141 mL/min (50-200); Estimated Glomerular Filt Rate 100 ml/min (>60); GFR (African American) 121 ML/MIN (>60); Glucose 116 mg/dl (74-100); INR 0.94 (0.9-1.1); Magnesium 1.8 mg/dl (1.6-2.3); Potassium 3.7 mmoL/L (3.5-5.1); Prothrombin Time 10.2 seconds (10.1-12.5); Sodium 135 mmol/L (136-145)
[2022-05-10 11:29] LABS: Procalcitonin 0.336 ng/mL (0.0-2.0)
--- NOTE | 2022-05-10 13:34 | EXP.ORTH.CON ---
History of Present Illness *Admission Date: 05/09/22 *History of present illness: This is a 27-year-old female that presents to [facility] emergency department after leaving the ED AMA yesterday. Her past medical history is significant for methamphetamine dependence and intravenous drug use disorder, tobacco dependence, kidney stones and medical noncompliance.? She reports left forearm pain that started after injecting methamphetamine into her arm I missed the vein. ? She reports injecting methamphetamines 05/07/2022 and developed redness and swelling to her left forearm.? She describes associated increasing edema and erythema with excoriations. She reports that it is painful to lift her arm. She reports associated fever and chills but no nausea, vomiting or diarrhea. She reports no confusion or hallucinations. She is started experiencing a croupy cough but no acute dyspnea. She reports that she is unvaccinated to COVID?19 or influenza. She describes a chronic history of illicit drug use and intravenous drug use. She has 3 children that have been removed from her custody secondary to the chronicity of her addiction. The children ages are 7, 4 and 2. In the ED a CT of the left upper extremity did not identify an abscess. Her CRP and ESR were elevated and she has a leukocytosis. Her urine drug screen is positive for methamphetamines and negative for opioids. Electrolytes and renal function are normal. Her hCG is negative. Her lactic acid was negative. Blood cultures have been acquired on both ED presentations. CTA of the chest shows left lower lobe septic emboli. She has received IV vancomycin and Rocephin with no adverse events. [facility] Disclaimer: The information contained in this section may have been updated after the patient was seen, as this information can be updated by other users. Medical History IVDU (intravenous drug user) Kidney stones Medical non-compliance Methamphetamine addiction Surgical History H/O cystoscopy H/O elbow surgery Hx of tonsillectomy Previous section S/P cholecystectomy Family History Mother Diabetes Heart attack Father No problems noted. Social History Smoking Status: Current every day smoker alcohol intake: current current occupational status: unemployed Travel in the last 8 weeks: None Review of Systems Constitutional Constitutional: Denies headache(s) and Denies weakness ENT Ears, Nose, Mouth, and Throat: Denies headache(s) *Musculoskeletal Musculoskeletal: Denies numbness *Neurologic Neurologic: Denies headache(s), Denies numbness and Denies weakness Meds Home Medications and Allergies Home Medications Medication Instructions Recorded Confirmed Type No Known Home Medications 05/09/22 05/09/22 History New Prescriptions to Start Prescriptions: Allergies Allergy/AdvReac Type Severity Reaction Status Date / Time No Known Allergies Allergy Verified 04/06/21 19:13 Ortho Exam (Inpt) Vital signs and Labs for Last 24 Hours: Temp Pulse Resp BP Pulse Ox 100.2 F H 101 H 14 129/77 98 05/10/22 08:00 05/10/22 08:00 05/10/22 08:00 05/10/22 08:00 05/10/22 08:00 Laboratory Results - last 24 hr 05/09/22 16:22: WBC 19.0 H, RBC 4.15 L, Hgb 11.5 L D, Hct 35.7 L, MCV 85.9, MCH 27.5, MCHC 32.0, RDW 15.0, Plt Count 295, MPV 7.4, Neut % (Auto) 83.8 H, Lymph % (Auto) 9.4 L, [place] % (Auto) 5.4, Eos % (Auto) 1.0, Baso % (Auto) 0.4, Neut # (Auto) 15.9 H, Lymph # (Auto) 1.8, [place] # (Auto) 1.0, Eos # (Auto) 0.2, Baso # (Auto) 0.1, Total Counted 100, Neutrophils % (Manual) 87 H, Lymphocytes % (Manual) 8 L, Monocytes % (Manual) 5, Platelet Estimate Normal, RBC Morphology Normal, ESR 83 H 05/09/22 16:22: Sodium 132 L, Po
[2022-05-10 16:00] VITALS: BP 108/67; PULSE 78; RESP 16; TEMP 36.9; O2SAT 98
--- NOTE | 2022-05-10 17:28 | PC.NURSE ---
Patient drowsy during shift but arousable. 1300 serax held as patient could barely keep eyes open. Attempted to have patient hold arm up but patient said no she could not do it. IV antibiotics given and patient remained on room air and VS stable.
--- NOTE | 2022-05-10 21:18 | ECG_ITS ---
APPROVED REPORT Exam: Resting ECG HR:111 bpm ECG Measurements Heart Rate 111 AXES AL 120 P 58 QRSd 125 QRS 24 QT 316 T 2 QTc 382 Conclusion SINUS TACHYCARDIA INDETERMINATE AXIS RIGHT BUNDLE BRANCH BLOCK [120+ ms QRS DURATION, UPRIGHT V1, 40+ ms S IN I/aVL/V4/V5/V6] MINIMAL VOLTAGE CRITERIA FOR LVH, CONSIDER NORMAL VARIANT [MEETS CRITERIA IN ONE OF: R(aVL), S(V1), R(V5), R(V5/V6)+S(V1)] ABNORMAL ECG UNCONFIRMED REPORT Electronically signed by : Kashmir Torres MD 05/11/2022 19:56:42
--- NOTE | 2022-05-10 22:37 | PC.NURSE ---
DURING 2099 MED PASS PT REFUSED TO TAKE HER HALDOL AND HER SERAX. CHARTED AT REFUSED. PT LATER CALLED OUT AND STATED SHE WANTED THEM. CHARGE NURSE CHEYANNE NOTIFIED AND MADE AWARE.
[2022-05-11 04:00] VITALS: BP 146/89; PULSE 87; RESP 18; TEMP 36.7; O2SAT 100
[2022-05-11 04:47] LABS: Vancomycin,Trough 7.4 ug/mL (5.0-10.0)
[2022-05-11 05:00] VITALS: BMI 31.4
--- NOTE | 2022-05-11 06:00 | CA_ITS ---
APPROVED REPORT EXAM: Comprehensive 2D, Doppler, and color-flow Echocardiogram Utility Hand: Lissette Christie, RCS, RVS Ht: 5 ft 1 in Wt: 140lbs BSA: 1.62 BP: 110/67 mmHg Indications: IVDA, Cellulitis of lt arm,Smoker 2D Dimensions IVSd 0.84 cm LVEF (Visual) 70.60 % PWd 0.98 cm LA Volume 43.40 mL LVDd 4.14 cm LA Volume Index 26.676258 mL/m2 (M/F) 16-34 LVDs 2.50 cm Aortic Root 2.55 cm Left Atrium 2.44 cm LVOT 1.95 cm (M/F) 1.5-2.5 M-Mode Dimensions LA Diam 2.86 cm (1.9-4.0) Ao Diam 2.59 cm (2.0-3.7) EPSs 1.08 cm TAPSE 2.06 (<1.7) LV Diastology E Decel Time 163.00 (160-240 msec) E/A Ratio 1.95 MED E' 11.30 (< 7 cm/sec) MED A' 13.30 cm/s E'/MED E' Ratio 7.60 (>14) LAT E' 14.80 (<10 cm/sec) LAT A' 3.60 cm/s E/LAT E' Ratio 5.80 (>14) Aortic Valve LVOT Max 119.00 (70-110 cm/s) LVOT VTI 23.13 cm AoV Peak Crescencio. 121.00 (50-130 cm/s) AO Peak GR. 5.90 mmHg AO Mean GR. 3.20 (<5 mmHg) AO VTI 21.86 (18-25 cm) BRIAN (VTI) 3.16 (2.5-4.5 cm2) Mitral Valve MV A Velocity 44.00 (40-130 cm/s) E/A Ratio 1.95 MV Decel. Time 163.00 (160-240 ms) MV PHT 47.00 ms Pulmonary Valve PV Peak Velocity 75.00 (50-150 cm/s) Tricuspid Valve TR P. Velocity 271.00 cm/s RAP Estimate 10.00 mmHg RVSP 39.40 mmHg Left Ventricle Left atrium is normal size left ventricle is normal size, estimated ejection fraction 55% with no regional wall motion abnormality. Diastolic parameters are within normal range. Right Ventricle Right atrium and right ventricle are normal size and contractility. Aortic Valve Aortic valve is grossly normal there is no aortic stenosis or aortic insufficiency. Mitral Valve Mitral valve grossly normal, there is trace mitral regurgitation. Tricuspid Valve Tricuspid grossly normal, there is trace tricuspid regurgitation, calculated right ventricular systolic pressure 35 mmHg. Pulmonic Valve Pulmonic valve is poorly visualized. Great Vessels Aortic root is normal size. Inferior vena cava is normal size with normal inspiratory collapse. Pericardium No significant pericardial effusion noted. Conclusion 1. Normal left ventricular size preserved left ventricular systolic function estimated ejection fraction 55% with no regional wall motion abnormality, diastolic parameters are within normal range. 2. Trace mitral and tricuspid regurgitation, calculated right ventricular systolic pressure 35 mmHg. 3. No significant pericardial effusion noted. 4. Inferior vena cava is normal size with normal inspiratory collapse. Electronically signed by : Dylan Vogel MD 05/11/2022 20:50:44
--- NOTE | 2022-05-11 06:01 | PC.NURSE ---
NO ACUTE CHANGES THIS SHIFT. PT REMAINS ON ROOM AIR. A&O X4. AMBULATING INDEPENDENTLY TO THE BR. REMAINS ON ROOM AIR. PT HAS BEEN RESISTIVE TO CARE THIS SHIFT. REFUSING MEDS THEN WANTING THEM LATER. RESISTIVE TO STAFF DOING CARE OR LAB DRAWS. C/O PAIN ONCE THIS SHIFT AND WAS MEDICATED PER MAR FOR PAIN. NO C/O N/V/D. CALL MISTRY WITHIN REACH.
[2022-05-11 08:00] VITALS: BP 132/95; PULSE 95; RESP 22; TEMP 37.1; O2SAT 100
--- NOTE | 2022-05-11 09:12 | PC.NURSE ---
pt in bed asleep at this time
--- NOTE | 2022-05-11 09:21 | EXP.ORTH.PN ---
Subjective *Date: 05/11/22 *Time: 09:00 Interval history: Patient is a 27 year old female admitted to the inpatient service secondary to left forearm pain/cellulitis. This morning the patient is lying comfortably in bed. She continues to report left forearm pain and subjective fevers/chills. She denies nausea or vomiting. No history of any distal tingling/numbness. She denies any other symptoms or concerns at this time. Ortho Exam (Inpt) Vital signs and Labs for Last 24 Hours: Temp Pulse Resp BP Pulse Ox 98.8 F 95 H 22 132/95 H 100 05/11/22 08:00 05/11/22 08:00 05/11/22 08:00 05/11/22 08:00 05/11/22 08:00 Laboratory Results - last 24 hr 05/10/22 10:40: WBC 13.1 H D, RBC 3.77 L, Hgb 10.5 L, Hct 31.6 L, MCV 83.7, MCH 27.7, MCHC 33.2, RDW 15.0, Plt Count 300, MPV 8.1, Neut % (Auto) 80.0, Lymph % (Auto) 11.8, Shoshone % (Auto) 5.4, Eos % (Auto) 2.3, Baso % (Auto) 0.5, Neut # (Auto) 10.5 H, Lymph # (Auto) 1.6, Shoshone # (Auto) 0.7, Eos # (Auto) 0.3, Baso # (Auto) 0.1 05/10/22 10:40: PT 10.2, INR 0.94 05/10/22 10:40: Sodium 135 L, Potassium 3.7, Chloride 107, Carbon Dioxide 24, Anion Gap 7.7, BUN 9, Creatinine 0.70, Estimated Creat Clear 141, Estimated GFR 100, Est GFR ( Amer) 121, Glucose 116 H D, Calcium 8.6, Magnesium 1.8, Procalcitonin 0.336 05/11/22 04:00: Vancomycin Trough 7.4 I & O for Labs for Last 24 Hours: Intake & Output 05/08/22 05/09/22 05/10/22 05/11/22 23:59 23:59 23:59 23:59 Intake Total 1410 / 1410 3185 / 3185 Output Total 0 / 0 0 / 0 Balance 1410 / 1410 3185 / 3185 Weight 159 lb 4.8 oz 162 lb 9.6 oz 166 lb 8 oz Head: Present normocephalic and atraumatic Eyes: Present as per HPI ENT: Present normal exam Neck: Present normal inspection, full ROM and trachea midline; Absent lymphadenopathy Respiratory: Present normal respiratory effort, able to speak in complete sentences and symmetric chest movement; Absent accessory muscle use Cardiac: Present Reg Rate and Rhythm GI: Present soft; Absent tenderness Comment:: Upon semination of the left forearm/upper extremity: Diffuse cellulitis, scars, track ledesma, scabs noted over the left forearm/upper extremity. Diffuse superficial tenderness to palpation. Range of motion of the elbow, wrist, full. Grossly compartments are soft to palpation. Radial pulse 2+; distal neurovascular status is intact. Sensation grossly intact over the radial, median, and ulnar nerve distributions. Skin: Present intact, warm and normal turgor; Absent cyanosis, erythema, lesions or jaundice Neuro: Present Cranial Nerve 2-12 Intact, Motor Function Intact, Sensory Function Intact, alert, awake, oriented x 3, tone normal and moves all extremities; Absent Numbness or Tingling Assessment and Plan *Assessment and plan (1) Thrombophlebitis of cephalic vein: Status: Acute Category: Medical Code(s): I80.8 - Phlebitis and thrombophlebitis of other sites (2) Cellulitis of left upper extremity: Status: Acute Category: Medical Code(s): L03.114 - Cellulitis of left upper limb Plan I have discussed the clinical findings with the patient. Plan for MRI of the left upper extremity today to assess for abscess or other operative indication not apparent on CT scan or radiographs. Continue strict elevation, IV antibiotics. Further recommendations pending MRI results. Continue medical management as per primary care team.
[2022-05-11 09:27] LABS: Basophils # 0.1 K/mm3 (0-0.2); Basophils % 0.5 % (0.1-2.0); Eosinophils # 0.2 K/mm3 (0.0-0.4); Eosinophils % 2.2 % (0.1-12.0); Hematocrit 31.4 % (37.0-47.0); Hemoglobin 10.6 g/dL (12.2-16.2); Lymphocytes # 1.6 K/mm3 (0.7-4.5); Lymphocytes % 18.2 % (10-50); Mean Corpuscular HGB Conc 33.7 g/dL (31.8-35.4); Mean Corpuscular Hemoglobin 28.5 pg (27.0-31.2); Mean Corpuscular Volume 84.4 fl (81-99); Mean Platelet Volume 7.4 fl (7.4-10.4); Monocytes # 0.5 K/mm3 (0.1-1.0); Neutrophils # 6.6 K/mm3 (1.8-7.8); Neutrophils % 73.1 % (37.0-80.0); Platelet Count 232 K/mm3 (142-424); Red Blood Count 3.72 M/mm3 (4.20-5.40); Red Cell Distribution Width 14.9 % (11.5-17.5)
--- NOTE | 2022-05-11 09:42 | MR_ITS ---
FINAL REPORT CLINICAL HISTORY: ABSCESS. SWELLING AND REDDNESS FROM HAND TO DISTAL FOREARM. NO CONTRAST GIVEN. FINDINGS: Multiplanar MR imaging of the left hand was performed without contrast. The bony structures are intact without evidence of fracture or bone marrow edema. No bony mass is identified. The flexor and extensor tendons are intact. The musculature is intact. There is dorsal subcutaneous edema or cellulitis with poorly defined fluid collection favored to represent seroma. There is also a 17 x 14 x 9 mm fluid collection at the radial aspect of the wrist which may represent abscess or seroma. IMPRESSION: Fluid collection at the radial aspect of the wrist measuring 17 x 14 x 9 mm which may represent abscess or seroma. Reviewed, Interpreted and Dictated by Josh Salgado III, MD Transcribed by Naomy Tinajero Authenticated and [facility]
[2022-05-11 10:33] LABS: Vancomycin,Peak 20.9 ug/ml (11-39)
--- NOTE | 2022-05-11 13:47 | PC.NURSE ---
sitting in bed awake at this time
--- NOTE | 2022-05-11 14:24 | PC.NURSE ---
1100 license check not done, pt at mri
--- NOTE | 2022-05-11 14:25 | EXP.PN ---
Subjective *Date: 05/11/22 *Time: 14:25 Interval history: Date of service 05/11/2022 I am accompanied by several members of the MDR team to evaluate the patient. Nursing staff report that she remains afebrile with stable vital signs and saturating appropriately on room air. She is due for left upper extremity MRI today. Her morning labs have been reviewed and discussed including a stable hemoglobin and resolved leukocytosis. Her procalcitonin was normal yesterday. She continues to tolerate her IV antibiotic with no adverse events. She is due for PICC line evaluation today. Orthopedics continues to follow. Exam Data for Last 24 hours Vital signs and Labs for Last 24 Hours: Temp Pulse Resp BP Pulse Ox 98.8 F 95 H 22 132/95 H 100 05/11/22 08:00 05/11/22 08:00 05/11/22 08:00 05/11/22 08:00 05/11/22 08:00 Laboratory Results - last 24 hr 05/11/22 04:00: Vancomycin Trough 7.4 05/11/22 09:15: Vancomycin Peak 20.9 05/11/22 09:15: WBC 9.0 D, RBC 3.72 L, Hgb 10.6 L, Hct 31.4 L, MCV 84.4, MCH 28.5, MCHC 33.7, RDW 14.9, Plt Count 232, MPV 7.4, Neut % (Auto) 73.1, Lymph % (Auto) 18.2, [place] % (Auto) 6.0, Eos % (Auto) 2.2, Baso % (Auto) 0.5, Neut # (Auto) 6.6, Lymph # (Auto) 1.6, [place] # (Auto) 0.5, Eos # (Auto) 0.2, Baso # (Auto) 0.1 I & O for Last 24 hours: Intake & Output 05/08/22 05/09/22 05/10/22 05/11/22 23:59 23:59 23:59 23:59 Intake Total 1410 / 1410 3665 / 3665 Output Total 0 / 0 0 / 0 Balance 1410 / 1410 3665 / 3665 Weight 72.257 kg 73.754 kg 75.523 kg Constitutional Constitutional: no acute distress, obese, chronically ill appearing, disheveled and cooperative *Routine HEENT Exam Head: Present normocephalic Eye: Present EOMI ENT: Present mucous membranes moist; Absent dentition normal *Routine Neck Exam Neck: Present supple, full ROM and trachea midline; Absent lymphadenopathy *Routine Respiratory Exam Respiratory: Present rhonchi, normal respiratory effort and symmetric chest movement; Absent respiratory distress *Routine Cardiovascular Exam Cardiovascular: Present tachycardia; Absent murmur *Routine Abdominal Exam Abdominal: Present soft and normoactive bowel sounds; Absent tenderness *Routine Extremities Exam Extremities: Present pulses intact and normal capillary refill Comments: Left upper extremity with improved range of motion, edema from the hand to her forearm area, multiple excoriations, improved erythema *Routine Skin Exam Skin: Present warm, normal turgor and wounds; Absent rash *Routine Neurological Exam Neurological: Present alert, oriented X3, moving all extremities, normal tone, vision grossly intact, hearing grossly intact and normal speech Routine Psychiatric Exam Psychiatric: Present normal affect, normal thought process, cooperative, good insight and good judgment Assessment and Plan *Assessment and plan (1) Sepsis: Status: Acute Category: Medical Code(s): A41.9 - Sepsis, unspecified organism (2) Cellulitis of left upper extremity: Status: Acute Category: Medical Code(s): L03.114 - Cellulitis of left upper limb (3) IVDU (intravenous drug user): Status: Inactive Category: Social Hx Code(s): F19.90 - Other psychoactive substance use, unspecified, uncomplicated (4) Methamphetamine addiction: Status: Acute Category: Medical Code(s): F15.20 - Other stimulant dependence, uncomplicated (5) Thrombophlebitis of cephalic vein: Status: Acute Category: Medical Code(s): I80.8 - Phlebitis and thrombophlebitis of other sites (6) Tobacco abuse: Status: Acute Category: Medical Code(s): Z72.0 - Tobacco use Plan Sepsis?resolved, POA, tachycardia, leukocytoses and source of infection. Blood cultures x 2 sets noted from her ED presentations are no growth to date. Transition to oral fluid resuscitation, lactic acid negative, IV antibiotic with vancomycin and IV Zosyn wi
--- NOTE | 2022-05-11 14:31 | PC.NURSE ---
0830- Attempt made to obtain consent for PICC Line that was ordered but patient refused and did not want to proceed with the procedure. Attending notified. 1420- 2nd attempt made to obtain consent for PICC Line and patient refused again. Attending voiced risks of not having the PICC Line to the patient and her mother. Patient still refused.
[2022-05-11 16:00] VITALS: BP 129/92; PULSE 98; RESP 20; TEMP 36.8; O2SAT 100
--- NOTE | 2022-05-11 18:41 | PC.NURSE ---
Patient able to complete most of MRI but still refusing to get PICC line. Patient instructed about benefits of picc line but still refusing. Dr. Duckworth notified. VS stable and patient remained on room air. Left arm still swollen and painful but color is not as red as previous shift.
[2022-05-11 18:46] LABS: Anion Gap 10.7 mEq/L (5-15); Blood Urea Nitrogen 4 mg/dl (7-17); Calcium 8.8 mg/dl (8.4-10.2); Carbon Dioxide 19 mmol/L (22.0-30.0); Chloride 113 mmol/L (98-107); Creatinine Clearance Estimated 168 mL/min (50-200); Estimated Glomerular Filt Rate 120 ml/min (>60); GFR (African American) 145 ML/MIN (>60); Glucose 131 mg/dl (74-100); Potassium 3.7 mmoL/L (3.5-5.1); Sodium 139 mmol/L (136-145)
[2022-05-11 18:52] LABS: C-Reactive Protein 86.1 mg/L (0-4)
[2022-05-11 19:13] LABS: Erythrocyte Sedimentation Rate > 140 mm/hr (0-20)
[2022-05-11 20:00] VITALS: BP 133/78; PULSE 93; RESP 20; TEMP 36.7; O2SAT 100
--- NOTE | 2022-05-12 03:43 | PC.NURSE ---
Pt refuses vital signs this morning
--- NOTE | 2022-05-12 03:53 | PC.NURSE ---
left arm edematous, warm, and slightly red. pt c/o left arm pain and was medicated prn per JUL. she has ambulated to the BR and tolerated well. New 20G US guided IV obtained in BOO this shift. Inserted by KOKO Puente RN. 22G IV in left foot was D/C. Pt very irritable this morning. States she wants to be left alone so she can sleep, and that she is signing out of the hospital today.
[2022-05-12 04:17] VITALS: BMI 31.0
--- NOTE | 2022-05-12 05:23 | PC.NURSE ---
Addendum entered by Opal Dalton RN 05/12/22 05:35: Notified Kenna PIERCE and states ok to have no IV at this time. Will notify Pharmacy of pt not getting last dose of Vanc. Original Note: Attempted to flush pts IV before infusing vanc. Pt c/o pain with flushing, and IV difficult to flush. Slight redness at IV site. Pt refuses to be stuck anymore at this time, and says she is going to leave the hospital. Pt states all you all want to do is poke and prod me . Pt cursing at hospital staff. Unable to infuse Vanc at this time, and unable to obtain IV acsess
[2022-05-12 08:00] VITALS: BP 151/93; PULSE 70; RESP 20; TEMP 36.9; O2SAT 94
--- NOTE | 2022-05-12 08:04 | PC.NURSE ---
0804- notified Dr. Martinez of nasal swab results MRSA +.
--- NOTE | 2022-05-12 10:41 | EXP.ORTH.PN ---
Subjective *Date: 05/12/22 *Time: 11:39 Interval history: Patient is a 27 year old female admitted to the inpatient service secondary to left forearm pain/cellulitis. This morning the patient is lying comfortably in bed. She continues to report left forearm pain and subjective fevers/chills. She reports that she had a breakfast tray around 07:00 AM this morning, prior to NPO orders being entered. She is drinking water at the bedside presently. No history of any distal tingling/numbness. She denies any other symptoms or concerns at this time. Ortho Exam (Inpt) Vital signs and Labs for Last 24 Hours: Temp Pulse Resp BP Pulse Ox 98.5 F 70 20 151/93 H 94 L 05/12/22 08:00 05/12/22 08:00 05/12/22 08:00 05/12/22 08:00 05/12/22 08:00 Laboratory Results - last 24 hr 05/11/22 18:11: ESR > 140 H 05/11/22 18:11: Sodium 139, Potassium 3.7, Chloride 113 H, Carbon Dioxide 19 L, Anion Gap 10.7, BUN 4 L D, Creatinine 0.60, Estimated Creat Clear 168, Estimated GFR 120, Est GFR ( Amer) 145, Glucose 131 H, Calcium 8.8, C-Reactive Protein 86.1 H D, Procalcitonin 0.160 I & O for Labs for Last 24 Hours: Intake & Output 05/09/22 05/10/22 05/11/22 05/12/22 23:59 23:59 23:59 23:59 Intake Total 1410 / 1410 4025 / 4025 Output Total 0 / 0 0 / 0 0 / 0 Balance 1410 / 1410 4025 / 4025 0 / 0 Weight 159 lb 4.8 oz 162 lb 9.6 oz 166 lb 8 oz 164 lb 8 oz Microbiology Reports for the Last 24 Hours: Microbiology 05/10/22 18:44 Nose - Nasal MRSA Culture - Final 05/09/22 16:26 Blood Blood Culture - Preliminary NO GROWTH AFTER 48 HOURS 05/09/22 16:26 Blood Blood Culture - Preliminary NO GROWTH AFTER 48 HOURS Head: Present normocephalic and atraumatic Eyes: Present as per HPI ENT: Present normal exam Neck: Present normal inspection, full ROM and trachea midline; Absent lymphadenopathy Respiratory: Present normal respiratory effort, able to speak in complete sentences and symmetric chest movement; Absent accessory muscle use Cardiac: Present Reg Rate and Rhythm GI: Present soft; Absent tenderness Comment:: Upon semination of the left forearm/upper extremity: Diffuse cellulitis, scars, track ledesma, scabs noted over the left forearm/upper extremity. Diffuse superficial tenderness to palpation. Range of motion of the elbow, wrist, full. Grossly compartments are soft to palpation. Radial pulse 2+; distal neurovascular status is intact. Sensation grossly intact over the radial, median, and ulnar nerve distributions. Diagnostic imaging: MRI performed at [facility] on 05/11/2022 reviewed along with radiologist report. MRI of the left hand and forearm demonstrate multiple areas of focal fluid collection consistent with abscess or seroma. Radiologist report is as follows: FINDINGS: Multiplanar MR imaging of the left hand was performed without contrast. The bony structures are intact without evidence of fracture or bone marrow edema. No bony mass is identified. The flexor and extensor tendons are intact. The musculature is intact. There is dorsal subcutaneous edema or cellulitis with poorly defined fluid collection favored to represent seroma. There is also a 17 x 14 x 9 mm fluid collection at the radial aspect of the wrist which may represent abscess or seroma. IMPRESSION: Fluid collection at the radial aspect of the wrist measuring 17 x 14 x 9 mm which may represent abscess or seroma. Reviewed, Interpreted and Dictated by Josh Salgado III, MD Transcribed by Naomy Tinajero Authenticated and [facility] FINDINGS: Multiplanar MR imaging of the left forearm was performed without contrast. Motion artifact on all sequences limits exam sensitivity. There is no evidence of fracture or bone marrow edema. No bony mass is identified. A moderate size elbow joint effusion
--- NOTE | 2022-05-12 12:45 | XR_ITS ---
FINAL REPORT CLINICAL HISTORY: PICC line placement FINDINGS: A right-sided PICC line terminates in the lower SVC. The heart size is normal. The mediastinum is within normal limits. There is atelectasis at the right lung base. There is no pleural effusion. There is no pneumothorax. The bony thorax is intact. IMPRESSION: Right-sided PICC line terminates in the lower SVC. Right basilar atelectasis. Reviewed, Interpreted and Dictated by Josh Salgado III, MD Transcribed by Wallace Le Authenticated and [facility]
--- NOTE | 2022-05-12 13:16 | EXP.ACUTE.PN ---
Subjective *Date: 05/12/22 *Time: 14:56 Interval history: Patient did well overnight. Continues to have left arm pain. Is eating voraciously on exam. Denies any fever, chest pain, shortness of breath, nausea or vomiting. Pain responsive to current regimen. Asking how long she is going to be in the hospital. No acute distress. Medical Exam Vital signs and Labs for Last 24 Hours: Vital Signs Temp Pulse Resp BP Pulse Ox 05/12/22 08:00 98.5 F 70 20 151/93 H 94 L 05/11/22 20:00 98.1 F 93 H 20 133/78 100 05/11/22 16:00 98.2 F 98 H 20 129/92 H 100 Intake and Output 05/11/22 05/12/22 05/12/22 23:59 07:59 15:59 Intake Total 360 / 4025 Output Total 0 / 0 Balance 360 / 4025 0 / 0 Intake: Intake, Oral Amount 360 / 1320 Output: Output, Urine Amount 0 / 0 Other: Number of Voids 0 Weight 74.616 kg Patient Weight 05/12/22 23:59 Weight 74.616 kg Laboratory Results - last 24 hr 05/11/22 18:11: ESR > 140 H 05/11/22 18:11: Sodium 139, Potassium 3.7, Chloride 113 H, Carbon Dioxide 19 L, Anion Gap 10.7, BUN 4 L D, Creatinine 0.60, Estimated Creat Clear 168, Estimated GFR 120, Est GFR ( Amer) 145, Glucose 131 H, Calcium 8.8, C-Reactive Protein 86.1 H D, Procalcitonin 0.160 I & O for Labs for Last 24 Hours: Intake & Output 05/09/22 05/10/22 05/11/22 05/12/22 23:59 23:59 23:59 23:59 Intake Total 1410 / 1410 4025 / 4025 Output Total 0 / 0 0 / 0 0 / 0 Balance 1410 / 1410 4025 / 4025 0 / 0 Weight 72.257 kg 73.754 kg 75.523 kg 74.616 kg Microbiology Reports for the Last 24 Hours: Microbiology 05/10/22 18:44 Nose - Nasal MRSA Culture - Final 05/09/22 16:26 Blood Blood Culture - Preliminary NO GROWTH AFTER 48 HOURS 05/09/22 16:26 Blood Blood Culture - Preliminary NO GROWTH AFTER 48 HOURS Constitutional: Present no acute distress, obese, chronically ill appearing and disheveled Head: Present atraumatic and normocephalic ENT: Present normal exam Respiratory: Present normal respiratory effort; Absent accessory muscle use, rhonchi, wheezes or crackles Cardiac: Present Reg Rate and Rhythm GI: Present soft and normal bowel sounds; Absent distention or tenderness Extremities: Present normal inspection and full ROM Skin: Present intact; Absent erythema Neuro: Present Cranial Nerve 2-12 Intact, Grossly Intact, alert, awake, oriented x 3 and moves all extremities Assessment and Plan *Assessment and plan (1) Cellulitis of left upper extremity: Status: Acute Category: Medical Code(s): L03.114 - Cellulitis of left upper limb (2) IVDU (intravenous drug user): Status: Inactive Category: Social Hx Code(s): F19.90 - Other psychoactive substance use, unspecified, uncomplicated (3) Methamphetamine addiction: Status: Acute Category: Medical Code(s): F15.20 - Other stimulant dependence, uncomplicated (4) Thrombophlebitis of cephalic vein: Status: Acute Category: Medical Code(s): I80.8 - Phlebitis and thrombophlebitis of other sites (5) Tobacco abuse: Status: Acute Category: Medical Code(s): Z72.0 - Tobacco use Plan 27-year-old with history of IV drug use. Presented with sepsis. Concern for left upper extremity cellulitis versus thrombophlebitis of cephalic vein. Still having swelling of left forearm. Orthopedics consulted, appreciate their recommendations. Planning for cleanout tomorrow of left forearm for source control. Continue IV antibiotics. Problems addressed as follows: Left upper extremity cellulitis Strep pyogenes bacteremia Thrombophlebitis of cephalic vein ?CT of left upper extremity identifies no abscess, MRI left upper extremity with seroma versus abscess at radial aspect of wrist and inflammation along forearm muscles. -Orthopedics consulted, appreciate their assistance and recommendations.
[2022-05-12 16:00] VITALS: BP 143/90; PULSE 92; RESP 19; TEMP 36.9; O2SAT 100
[2022-05-12 18:12] LABS: Basophils # 0.1 K/mm3 (0-0.2); Basophils % 0.8 % (0.1-2.0); Eosinophils # 0.1 K/mm3 (0.0-0.4); Eosinophils % 0.7 % (0.1-12.0); Hematocrit 33.5 % (37.0-47.0); Hemoglobin 10.7 g/dL (12.2-16.2); Lymphocytes # 1.6 K/mm3 (0.7-4.5); Lymphocytes % 22.1 % (10-50); Mean Corpuscular Hemoglobin 27.4 pg (27.0-31.2); Mean Corpuscular Volume 85.8 fl (81-99); Mean Platelet Volume 8.1 fl (7.4-10.4); Monocytes # 0.4 K/mm3 (0.1-1.0); Monocytes % 5.5 % (1.7-9.3); Neutrophils # 5.3 K/mm3 (1.8-7.8); Platelet Count 448 K/mm3 (142-424); Red Cell Distribution Width 14.8 % (11.5-17.5); White Blood Count 7.5 K/mm3 (4.8-10.8)
[2022-05-12 18:17] LABS: Chloride 109 mmol/L (98-107)
[2022-05-12 18:18] LABS: Potassium 3.5 mmoL/L (3.5-5.1); Sodium 141 mmol/L (136-145)
[2022-05-12 18:20] LABS: Blood Urea Nitrogen 8 mg/dl (7-17); Creatinine Clearance Estimated 166 mL/min (50-200); Estimated Glomerular Filt Rate 120 ml/min (>60); GFR (African American) 145 ML/MIN (>60)
[2022-05-12 18:21] LABS: Anion Gap 11.5 mEq/L (5-15); Calcium 8.9 mg/dl (8.4-10.2); Carbon Dioxide 24 mmol/L (22.0-30.0); Glucose 123 mg/dl (74-100)
--- NOTE | 2022-05-12 18:43 | PC.NURSE ---
PICC line able to use, labs drawn and sent. VS stable and patient reeducated to not eat or drink after midnight for upcoming surgery. Left arm still slightly reddish pink and swelling noted but not any worse from previous assessment. Toradol given for pain once after picc line inserted.
[2022-05-12 20:00] VITALS: BP 146/95; PULSE 95; RESP 20; TEMP 36.7; O2SAT 100
[2022-05-13] VITALS (13 sets, daily range): BP systolic 109–133; BP diastolic 58–79; PULSE 84–98; RESP 14–18; TEMP 36.2–36.9; O2SAT 93–100; BMI 31.5
--- NOTE | 2022-05-13 04:02 | PC.NURSE ---
pt refused vitals, nurse was notified
[2022-05-13 06:06] LABS: Basophils # 0.1 K/mm3 (0-0.2); Eosinophils # 0.1 K/mm3 (0.0-0.4); Eosinophils % 1.8 % (0.1-12.0); Hematocrit 33.3 % (37.0-47.0); Hemoglobin 10.7 g/dL (12.2-16.2); Lymphocytes # 2.1 K/mm3 (0.7-4.5); Mean Corpuscular HGB Conc 32.2 g/dL (31.8-35.4); Mean Corpuscular Hemoglobin 27.4 pg (27.0-31.2); Mean Corpuscular Volume 85.3 fl (81-99); Monocytes # 0.5 K/mm3 (0.1-1.0); Monocytes % 7.3 % (1.7-9.3); Neutrophils # 3.8 K/mm3 (1.8-7.8); Neutrophils % 57.9 % (37.0-80.0); Platelet Count 443 K/mm3 (142-424); Red Cell Distribution Width 14.7 % (11.5-17.5); White Blood Count 6.6 K/mm3 (4.8-10.8)
[2022-05-13 06:10] LABS: Chloride 108 mmol/L (98-107); Sodium 139 mmol/L (136-145)
[2022-05-13 06:13] LABS: Blood Urea Nitrogen 8 mg/dl (7-17); Calcium 8.9 mg/dl (8.4-10.2); Carbon Dioxide 26 mmol/L (22.0-30.0); Creatinine Clearance Estimated 168 mL/min (50-200); Estimated Glomerular Filt Rate 120 ml/min (>60); GFR (African American) 145 ML/MIN (>60); Glucose 85 mg/dl (74-100)
[2022-05-13 06:18] LABS: C-Reactive Protein 32.1 mg/L (0-4)
--- NOTE | 2022-05-13 06:30 | PC.NURSE ---
NO ACUTE CHANGES SINCE PREVIOUS ASSESSMENT. PT HAS SLEPT WELL. REMAINS ON ROOM AIR. PT WAS PLEASANT AND COOPERATIVE WITH STAFF AT THE BEGINNING OF THE SHIFT. THIS AM PT CUSSED AT THIS NURSE WHILE TRYING TO OBTAIN MORNING LABS. PT WAS AGGRESSIVE AND RESISTIVE TO CARE BUT FINALLY ALLOWED ME TO DRAW HER AM LABS. LEFT ARM REMAINS RED AND SLIGHTLY SWOLLEN. CALL MISTRY WITHIN REACH.
--- NOTE | 2022-05-13 08:15 | PC.NURSE ---
Pt refused 0800 vitals this morning.
[2022-05-13 09:31] LABS: Erythrocyte Sedimentation Rate 132 mm/hr (0-20)
--- NOTE | 2022-05-13 11:14 | EXP.ORTH.PN ---
Subjective *Date: 05/13/22 *Time: 10:00 Interval history: Patient is a 27 year old female admitted to the inpatient service secondary to left forearm pain/cellulitis. This morning the patient is resting comfortably in bed. She has been n.p.o. since midnight in anticipation of surgery today. She denies any other symptoms or concerns at this time. Ortho Exam (Inpt) Vital signs and Labs for Last 24 Hours: Temp Pulse Resp BP Pulse Ox 98.1 F 95 H 20 146/95 H 98 05/12/22 20:00 05/12/22 20:00 05/12/22 20:00 05/12/22 20:00 05/13/22 08:00 Laboratory Results - last 24 hr 05/12/22 18:00: Procalcitonin 0.110 05/12/22 18:00: Sodium 141, Potassium 3.5, Chloride 109 H, Carbon Dioxide 24, Anion Gap 11.5, BUN 8 D, Creatinine 0.60, Estimated Creat Clear 166, Estimated GFR 120, Est GFR ( Amer) 145, Glucose 123 H, Calcium 8.9 05/12/22 18:00: WBC 7.5, RBC 3.90 L, Hgb 10.7 L, Hct 33.5 L, MCV 85.8, MCH 27.4, MCHC 32.0, RDW 14.8, Plt Count 448 H D, MPV 8.1, Neut % (Auto) 71.0, Lymph % (Auto) 22.1, [place] % (Auto) 5.5, Eos % (Auto) 0.7, Baso % (Auto) 0.8, Neut # (Auto) 5.3, Lymph # (Auto) 1.6, [place] # (Auto) 0.4, Eos # (Auto) 0.1, Baso # (Auto) 0.1 05/13/22 05:20: WBC 6.6, RBC 3.90 L, Hgb 10.7 L, Hct 33.3 L, MCV 85.3, MCH 27.4, MCHC 32.2, RDW 14.7, Plt Count 443 H, MPV 8.0, Neut % (Auto) 57.9, Lymph % (Auto) 32.0, [place] % (Auto) 7.3, Eos % (Auto) 1.8, Baso % (Auto) 1.0, Neut # (Auto) 3.8, Lymph # (Auto) 2.1, [place] # (Auto) 0.5, Eos # (Auto) 0.1, Baso # (Auto) 0.1, ESR 132 H 05/13/22 05:20: C-Reactive Protein 32.1 H D 05/13/22 05:20: Sodium 139, Potassium 4.0, Chloride 108 H, Carbon Dioxide 26, Anion Gap 9.0, BUN 8, Creatinine 0.60, Estimated Creat Clear 168, Estimated GFR 120, Est GFR ( Amer) 145, Glucose 85 D, Calcium 8.9 I & O for Labs for Last 24 Hours: Intake & Output 05/10/22 05/11/22 05/12/22 05/13/22 23:59 23:59 23:59 23:59 Intake Total 1410 / 1410 4025 / 4025 240 / 240 Output Total 0 / 0 0 / 0 0 / 0 Balance 1410 / 1410 4025 / 4025 240 / 240 Weight 162 lb 9.6 oz 166 lb 8 oz 164 lb 8 oz 167 lb Microbiology Reports for the Last 24 Hours: Microbiology 05/10/22 18:44 Nose - Nasal MRSA Culture - Final Head: Present normocephalic and atraumatic Eyes: Present as per HPI ENT: Present normal exam Neck: Present normal inspection, full ROM and trachea midline; Absent lymphadenopathy Respiratory: Present normal respiratory effort, able to speak in complete sentences and symmetric chest movement; Absent accessory muscle use Cardiac: Present Reg Rate and Rhythm GI: Present soft; Absent tenderness Comment:: Upon examination of the left forearm/upper extremity: Diffuse cellulitis, scars, track ledesma, scabs noted over the left forearm/upper extremity. Diffuse superficial tenderness to palpation. Range of motion of the elbow, wrist, full. Grossly compartments are soft to palpation. Radial pulse 2+; distal neurovascular status is intact. Sensation grossly intact over the radial, median, and ulnar nerve distributions. Skin: Present intact, warm and normal turgor; Absent cyanosis, erythema, lesions or jaundice Neuro: Present Cranial Nerve 2-12 Intact, Motor Function Intact, Sensory Function Intact, alert, awake, oriented x 3, tone normal and moves all extremities; Absent Numbness or Tingling Assessment and Plan *Assessment and plan (1) Thrombophlebitis of cephalic vein: Status: Acute Category: Medical Code(s): I80.8 - Phlebitis and thrombophlebitis of other sites (2) Cellulitis of left upper extremity: Status: Acute Category: Medical Code(s): L03.114 - Cellulitis of left upper limb (3) Cellulitis: Status: Acute Category: Medical Code(s): L03.90 - Cellulitis, unspecified Plan I have discussed the clinical findings and management options including surgical as well as nonsurgical and the associated risk/benefits alternatives to each in detail with the patient. We have
--- NOTE | 2022-05-13 11:51 | P.PN_ITS ---
Subjective *Date: 05/13/22 *Time: 11:51 Medical Exam Vital signs and Labs for Last 24 Hours: Vital Signs Temp Pulse Resp BP Pulse Ox 05/13/22 08:00 98 05/12/22 20:00 98.1 F 95 H 20 146/95 H 100 05/12/22 16:00 98.4 F 92 H 19 143/90 H 100 Intake and Output 05/12/22 05/13/22 05/13/22 23:59 07:59 15:59 Intake Total 240 / 240 Output Total 0 / 0 Balance 240 / 240 Intake: Intake, Oral Amount 240 / 240 Output: Output, Urine Amount 0 / 0 Other: Number of Voids 1 Number of Unmeasured Voids 1 Weight 75.75 kg Patient Weight 05/13/22 23:59 Weight 75.75 kg Laboratory Results - last 24 hr 05/12/22 18:00: Procalcitonin 0.110 05/12/22 18:00: Sodium 141, Potassium 3.5, Chloride 109 H, Carbon Dioxide 24, Anion Gap 11.5, BUN 8 D, Creatinine 0.60, Estimated Creat Clear 166, Estimated GFR 120, Est GFR ( Amer) 145, Glucose 123 H, Calcium 8.9 05/12/22 18:00: WBC 7.5, RBC 3.90 L, Hgb 10.7 L, Hct 33.5 L, MCV 85.8, MCH 27.4, MCHC 32.0, RDW 14.8, Plt Count 448 H D, MPV 8.1, Neut % (Auto) 71.0, Lymph % (Auto) 22.1, [place] % (Auto) 5.5, Eos % (Auto) 0.7, Baso % (Auto) 0.8, Neut # (Auto) 5.3, Lymph # (Auto) 1.6, [place] # (Auto) 0.4, Eos # (Auto) 0.1, Baso # (Auto) 0.1 05/13/22 05:20: WBC 6.6, RBC 3.90 L, Hgb 10.7 L, Hct 33.3 L, MCV 85.3, MCH 27.4, MCHC 32.2, RDW 14.7, Plt Count 443 H, MPV 8.0, Neut % (Auto) 57.9, Lymph % (Auto) 32.0, [place] % (Auto) 7.3, Eos % (Auto) 1.8, Baso % (Auto) 1.0, Neut # (Auto) 3.8, Lymph # (Auto) 2.1, [place] # (Auto) 0.5, Eos # (Auto) 0.1, Baso # (Auto) 0.1, ESR 132 H 05/13/22 05:20: C-Reactive Protein 32.1 H D 05/13/22 05:20: Sodium 139, Potassium 4.0, Chloride 108 H, Carbon Dioxide 26, Anion Gap 9.0, BUN 8, Creatinine 0.60, Estimated Creat Clear 168, Estimated GFR 120, Est GFR ( Amer) 145, Glucose 85 D, Calcium 8.9 I & O for Labs for Last 24 Hours: Intake & Output 05/10/22 05/11/22 05/12/22 05/13/22 23:59 23:59 23:59 23:59 Intake Total 1410 / 1410 4025 / 4025 240 / 240 Output Total 0 / 0 0 / 0 0 / 0 Balance 1410 / 1410 4025 / 4025 240 / 240 Weight 73.754 kg 75.523 kg 74.616 kg 75.75 kg Microbiology Reports for the Last 24 Hours: Microbiology 05/10/22 18:44 Nose - Nasal MRSA Culture - Final The patient's infection will respond to the chosen ABx?: Yes Is the patient receiving the right drug, dose, and route?: Yes Could a more targeted ABx be ordered?: No
--- NOTE | 2022-05-13 12:49 | PC.NURSE ---
Patient off the floor for surgery.
[2022-05-13 12:54] LABS: Vancomycin,Trough 17.1 ug/mL (5.0-10.0)
--- NOTE | 2022-05-13 13:08 | SUR.PREOP ---
Dr Sainz in room BS w/ patient and family
--- NOTE | 2022-05-13 13:09 | EXP.ACUTE.PN ---
Subjective *Date: 05/13/22 *Time: 13:09 Interval history: Patient did well overnight. Remains afebrile and on room air. Hemodynamically stable. N.p.o. this morning for planned debridement and washout of left forearm. Sleeping comfortably initially on exam. No complaints of chest pain, shortness of breath, nausea or vomiting. Pain in left forearm appears to be improving as she is sleeping on that side. Labs reviewed, inflammatory markers showing improved Medical Exam Vital signs and Labs for Last 24 Hours: Vital Signs Temp Pulse Resp BP Pulse Ox 05/13/22 08:00 98 05/12/22 20:00 98.1 F 95 H 20 146/95 H 100 05/12/22 16:00 98.4 F 92 H 19 143/90 H 100 Intake and Output 05/12/22 05/13/22 05/13/22 23:59 07:59 15:59 Intake Total 240 / 240 Output Total 0 / 0 Balance 240 / 240 Intake: Intake, Oral Amount 240 / 240 Output: Output, Urine Amount 0 / 0 Other: Number of Voids 1 Number of Unmeasured Voids 1 Weight 75.75 kg Patient Weight 05/13/22 23:59 Weight 75.75 kg Laboratory Results - last 24 hr 05/12/22 18:00: Procalcitonin 0.110 05/12/22 18:00: Sodium 141, Potassium 3.5, Chloride 109 H, Carbon Dioxide 24, Anion Gap 11.5, BUN 8 D, Creatinine 0.60, Estimated Creat Clear 166, Estimated GFR 120, Est GFR ( Amer) 145, Glucose 123 H, Calcium 8.9 05/12/22 18:00: WBC 7.5, RBC 3.90 L, Hgb 10.7 L, Hct 33.5 L, MCV 85.8, MCH 27.4, MCHC 32.0, RDW 14.8, Plt Count 448 H D, MPV 8.1, Neut % (Auto) 71.0, Lymph % (Auto) 22.1, [place] % (Auto) 5.5, Eos % (Auto) 0.7, Baso % (Auto) 0.8, Neut # (Auto) 5.3, Lymph # (Auto) 1.6, [place] # (Auto) 0.4, Eos # (Auto) 0.1, Baso # (Auto) 0.1 05/13/22 05:20: WBC 6.6, RBC 3.90 L, Hgb 10.7 L, Hct 33.3 L, MCV 85.3, MCH 27.4, MCHC 32.2, RDW 14.7, Plt Count 443 H, MPV 8.0, Neut % (Auto) 57.9, Lymph % (Auto) 32.0, [place] % (Auto) 7.3, Eos % (Auto) 1.8, Baso % (Auto) 1.0, Neut # (Auto) 3.8, Lymph # (Auto) 2.1, [place] # (Auto) 0.5, Eos # (Auto) 0.1, Baso # (Auto) 0.1, ESR 132 H 05/13/22 05:20: C-Reactive Protein 32.1 H D 05/13/22 05:20: Sodium 139, Potassium 4.0, Chloride 108 H, Carbon Dioxide 26, Anion Gap 9.0, BUN 8, Creatinine 0.60, Estimated Creat Clear 168, Estimated GFR 120, Est GFR ( Amer) 145, Glucose 85 D, Calcium 8.9 05/13/22 12:13: Vancomycin Trough 17.1 H I & O for Labs for Last 24 Hours: Intake & Output 05/10/22 05/11/22 05/12/22 05/13/22 23:59 23:59 23:59 23:59 Intake Total 1410 / 1410 4025 / 4025 240 / 240 Output Total 0 / 0 0 / 0 0 / 0 Balance 1410 / 1410 4025 / 4025 240 / 240 Weight 73.754 kg 75.523 kg 74.616 kg 75.75 kg Constitutional: Present no acute distress, obese, chronically ill appearing and disheveled Head: Present atraumatic and normocephalic ENT: Present normal exam Respiratory: Present normal respiratory effort; Absent accessory muscle use, rhonchi, wheezes or crackles Cardiac: Present Reg Rate and Rhythm GI: Present soft and normal bowel sounds; Absent distention or tenderness Extremities: Present normal inspection and full ROM Comment:: Left forearm with mild swelling and tenderness. No significant erythema. Skin: Present intact; Absent erythema Neuro: Present Cranial Nerve 2-12 Intact, Grossly Intact, alert, awake, oriented x 3 and moves all extremities Assessment and Plan *Assessment and plan (1) Cellulitis of left upper extremity: Status: Acute Category: Medical Code(s): L03.114 - Cellulitis of left upper limb (2) IVDU (intravenous drug user): Status: Inactive Category: Social Hx Code(s): F19.90 - Other psychoactive substance use, unspecified, uncomplicated (3) Methamphetamine addiction: Status: Acute Category: Medical Code(s): F15.20 - Other stimulant dependence, uncomplicated (4) Thrombophlebitis of cephalic vein: Status: Acute Category: Medical Code(s): I80.8 - Phlebitis and thrombophlebitis of other sites (5) Tobacco abuse:
--- NOTE | 2022-05-13 13:33 | EXP.ANES.CKL ---
[facility] Disclaimer: The information contained in this section may have been updated after the patient was seen, as this information can be updated by other users. Medical History IVDU (intravenous drug user) Kidney stones Medical non-compliance Methamphetamine addiction Surgical History H/O cystoscopy H/O elbow surgery Hx of tonsillectomy Previous section S/P cholecystectomy Family History Mother Diabetes Heart attack Father No problems noted. Social History Smoking Status: Current every day smoker alcohol intake: current substance use type: marijuana and methamphetamine current occupational status: unemployed Travel in the last 8 weeks: None [facility] Anesthesia Checklist Patient Identification Patient Identification: Arm Band and Verbal (Name & ) Structural Data Admitted From: Inpatient Planned Operative Procedure/s: Left Forearm I & D Consent for Planned Operative Procedure(s) Verified: Yes Verified Documents: Surgical Consent NPO Status Verified Time NPO: 00:00 Airway Assessment C-Spine Mobility Assessed: Yes TMJ Mobility Assessed: Yes Dentition: Good Dentition Neurological Assessment Level of Consciousness: Awake, Alert and Appropriate Anesthesia Plan Anesthesia Risk discussed: Yes ASA Class: III Anesthesia Type: General
--- NOTE | 2022-05-13 14:01 | P.CONPHA_ITS ---
Pharmacy Consult Date: 05/13/22 Time: 14:01 Referring provider: DR RODRIGUEZ Reason for Consult:: VANCOMYCIN DOSE ADJUSTMENT BASED ON PK LEVELS Allergies Allergy/AdvReac Type Severity Reaction Status Date / Time No Known Allergies Allergy Verified 04/06/21 19:13 Home Medications Medication Instructions Recorded Confirmed Type No Known Home Medications 05/09/22 05/09/22 History New Prescriptions to Start Prescriptions: Height: 1.55 m Weight: 75.75 kg Laboratory Results:: Laboratory Results - last 24 hr 05/12/22 18:00: Procalcitonin 0.110 05/12/22 18:00: Sodium 141, Potassium 3.5, Chloride 109 H, Carbon Dioxide 24, Anion Gap 11.5, BUN 8 D, Creatinine 0.60, Estimated Creat Clear 166, Estimated GFR 120, Est GFR ( Amer) 145, Glucose 123 H, Calcium 8.9 05/12/22 18:00: WBC 7.5, RBC 3.90 L, Hgb 10.7 L, Hct 33.5 L, MCV 85.8, MCH 27.4, MCHC 32.0, RDW 14.8, Plt Count 448 H D, MPV 8.1, Neut % (Auto) 71.0, Lymph % (Auto) 22.1, [place] % (Auto) 5.5, Eos % (Auto) 0.7, Baso % (Auto) 0.8, Neut # (Auto) 5.3, Lymph # (Auto) 1.6, [place] # (Auto) 0.4, Eos # (Auto) 0.1, Baso # (Auto) 0.1 05/13/22 05:20: WBC 6.6, RBC 3.90 L, Hgb 10.7 L, Hct 33.3 L, MCV 85.3, MCH 27.4, MCHC 32.2, RDW 14.7, Plt Count 443 H, MPV 8.0, Neut % (Auto) 57.9, Lymph % (Auto) 32.0, [place] % (Auto) 7.3, Eos % (Auto) 1.8, Baso % (Auto) 1.0, Neut # (Auto) 3.8, Lymph # (Auto) 2.1, [place] # (Auto) 0.5, Eos # (Auto) 0.1, Baso # (Auto) 0.1, ESR 132 H 05/13/22 05:20: C-Reactive Protein 32.1 H D 05/13/22 05:20: Sodium 139, Potassium 4.0, Chloride 108 H, Carbon Dioxide 26, Anion Gap 9.0, BUN 8, Creatinine 0.60, Estimated Creat Clear 168, Estimated GFR 120, Est GFR ( Amer) 145, Glucose 85 D, Calcium 8.9 05/13/22 12:13: Vancomycin Trough 17.1 H Medical History: Medical History (Updated 05/09/22 @ 18:19 by Kelechi Wolf MD) IVDU (intravenous drug user) Kidney stones Medical non-compliance Methamphetamine addiction Assessment and Plan Assessment and plan all Dx Assessment and Plan for all problems:: Pharmacokinetic dosing service Weight: 73.8 Kilograms Vancomycin single level analysis: Current dose being given: 1500 mg Current dosing interval: 8 hrs Current infusion time (hrs): 2 Single level Trough Data: Trough level obtained: 17.1 mcg/ml Timing of trough - # of hrs before next dose: 0.5 Hrs Desired peak: 35 mcg/ml Desired trough: 12.5 mcg/ml Estimated PK Parameters: New rate constant (vidal): 0.132 hr-1 Half-life: 5.25 Hours Vd from levels: 51.66 Liters (0.7 L/kg) CLvanco=?? 6.819 L/hr Estimated New Dose and Interval Recommended dose: 1493.0 mg Recommended interval: 9.8 Hrs Recommendations: Give Vancomycin 1250 mg q 8 hrs. Infuse over 2 hrs Expected Cpeak: 32.6 mcg/mL Expected Ctrough: 14.8 mcg/mL AUC 0-24 /TORIE Data: TORIE 0.5 mcg/mL:?? AUC/TORIE:? 1099.9 TORIE 1.0 mcg/mL:?? AUC/TORIE:? 549.9 Thank you for the consult
--- NOTE | 2022-05-13 14:13 | EXP.ANES.I ---
[facility] Anesthesia Record Part I Anesthesia Record I Intake, IV Amount: 500 Estimated blood loss (mL): 5 Urine output (mL): 0 Blood Pressure: 110/64 SaO2: 94 Pulse Rate: 93 Respiratory Rate: 16 Temperature: 97.1 F Patient is:: Drowsy and Stable Stable to PACU at:: 14:10
--- NOTE | 2022-05-13 14:16 | EXP.OP.NOTE ---
Date of procedure: 05/13/22 Pre-op Diagnosis:: Left upper extremity abscess Post-op Diagnosis:: Same Procedure performed:: Incision and drainage of left upper extremity abscess with irrigation and debridement Surgeon:: Daquan Sainz DO Data Warehouse Analyst(s):: Kristi ALMENDAREZ Anesthesia: GETA Estimated blood loss (mL): 25 Operative findings:: Abscess radial aspect of the forearm Operative note:: Patient was identified preoperatively left upper extremity was marked yes my initials. Preoperative MRI scans of the forearm and wrist were reviewed for area of abscess. Patient transported back to the operating room placed bilaterally bed general anesthesia was administered and airway was secured. Left upper extremity prepped and draped with a Betadine prep. Once prepped and draped final operative timeout performed to identify proper patient procedure and extremity. Everyone involved the case agreed. No counter indications to beginning. Did receive preoperative antibiotics with her regular scheduled dose of vancomycin. Area of abscess on the radial aspect of the forearm proximal to the wrist was identified. Skin F was used incise the skin. Dissection was taken down bluntly with scissors to the fascial layer. We encountered area of abscess with shikha pus. This area was cultured. Irrigation and debridement of devitalized tissue was performed. Blunt dissection was taken around the abscess area to the areas of redness around the forearm and decompressed. Copious irrigation the wound was performed. Attention was then brought to the rest of the forearm the dorsum of the forearm was investigated as well as antecubital area seen with increased cellulitis on the MRI scan. There is no tight areas of defined abscess in this area. Copious irrigation was repeated at the incision site. Skin was closed with a 2-0 Monocryl stitch. Sterile dressing was placed. Patient waken anesthesia taken recovery in stable condition. Condition: stable Disposition: PACU Specimens:: Intraoperative cultures Complications:: None apparent
--- NOTE | 2022-05-13 14:48 | PC.NURSE ---
pt. back to the floor from surgery.
--- NOTE | 2022-05-13 14:53 | SUR.PHASEI ---
1436 called and gave detailed report to Rozina Cortes RN 1440 transported via bed to med/surg room. vital signs stable. denies pain at this time. left pt in stable condition with Rozina Cortes RN at bedside.
--- NOTE | 2022-05-13 15:24 | PC.NURSE ---
Dressing changed using sterile technique to right upper picc.
--- NOTE | 2022-05-13 16:23 | PC.NURSE ---
1621-PT DEMANDED THAT I REMOVE DATA SCOPE BP CUFF AND PULSE OX. PT WAS EDUCATED ON NEED FOR CONTINUOUS MONITORING. SHE BECAME IRRATE AND BEGAN CUSSING AT THIS RN.
--- NOTE | 2022-05-13 17:42 | PC.NURSE ---
PT REFUSED FOR THIS RN TO OBTAIN VITAL SIGNS
--- NOTE | 2022-05-13 18:38 | PC.NURSE ---
No acute changes since last assessment. Pt. continues to refuse lovenox and at times VS. Had an I and D of left upper arm which has a keith wrap and good pulses. Vss and 98 percent on ra.
--- NOTE | 2022-05-13 21:37 | PC.NURSE ---
verified vanc dose with [facility]
[2022-05-14] VITALS: BP 132/76; PULSE 91; RESP 17; TEMP 36.6; O2SAT 100
--- NOTE | 2022-05-14 03:13 | PC.NURSE ---
Addendum entered by Opal Dalton RN 05/14/22 07:16: MASSAGE OPERATOR Jarret mancini Original Note: pt refused 0200 dose of zosyn. states she can't sleep with it infusing
[2022-05-14 03:40] VITALS: BP 141/81; PULSE 88; RESP 16; TEMP 36.6; O2SAT 98
--- NOTE | 2022-05-14 04:46 | PC.NURSE ---
Pt A&OX4. Resistive to care at times. Medicated PRN per MAR for LUE pain. PICC line in ZACH patent and flushes well. JULISA wrap to LUE.
[2022-05-14 05:00] VITALS: BMI 31.4
--- NOTE | 2022-05-14 05:38 | PC.NURSE ---
pt refusing morning labs and vanc at this time. Will re-attempt at 0600 per pts request.
[2022-05-14 06:33] LABS: Basophils # 0.1 K/mm3 (0-0.2); Basophils % 1.2 % (0.1-2.0); Eosinophils # 0.1 K/mm3 (0.0-0.4); Eosinophils % 1.6 % (0.1-12.0); Hematocrit 32.9 % (37.0-47.0); Hemoglobin 10.6 g/dL (12.2-16.2); Lymphocytes # 2.4 K/mm3 (0.7-4.5); Mean Corpuscular HGB Conc 32.3 g/dL (31.8-35.4); Mean Corpuscular Hemoglobin 27.3 pg (27.0-31.2); Mean Corpuscular Volume 84.5 fl (81-99); Mean Platelet Volume 7.3 fl (7.4-10.4); Monocytes # 0.5 K/mm3 (0.1-1.0); Monocytes % 6.7 % (1.7-9.3); Neutrophils # 4.1 K/mm3 (1.8-7.8); Neutrophils % 57.5 % (37.0-80.0); Platelet Count 505 K/mm3 (142-424); Red Blood Count 3.89 M/mm3 (4.20-5.40); Red Cell Distribution Width 14.9 % (11.5-17.5); White Blood Count 7.2 K/mm3 (4.8-10.8)
[2022-05-14 06:37] LABS: Chloride 107 mmol/L (98-107); Potassium 4.3 mmoL/L (3.5-5.1); Sodium 139 mmol/L (136-145)
[2022-05-14 06:40] LABS: Alanine Aminotransferase 108 U/L (12-78); Albumin Level 3.1 g/dl (3.5-5.0); Albumin/Globulin Ratio 0.8 (1.1-1.8); Alkaline Phosphatase 244 U/L (38-126); Anion Gap 9.3 mEq/L (5-15); Aspartate Amino Transferase 54 U/L (14-36); Blood Urea Nitrogen 8 mg/dl (7-17); Calcium 8.7 mg/dl (8.4-10.2); Carbon Dioxide 27 mmol/L (22.0-30.0); Creatinine Clearance Estimated 168 mL/min (50-200); Estimated Glomerular Filt Rate 120 ml/min (>60); GFR (African American) 145 ML/MIN (>60); Globulin 3.8 g/dL (1.3-3.2); Glucose 89 mg/dl (74-100); Total Protein,Serum 6.9 g/dl (6.3-8.2)
[2022-05-14 07:09] LABS: Bilirubin,Total < 0.1 mg/dl (0.2-1.3)
--- NOTE | 2022-05-14 07:54 | EXP.ANES.II ---
[facility] Anesthesia Record Part II Anesthesia Record Part II Discharge Time: 14:40 Destination: Surgical Day Care (OP Surgery) PACU nurse assessment reviewed?: Yes Patient Condition:: Good Anesthesia Complications:: None Swallowing reflex intact?: Yes Cyanosis?: No Blood Pressure: 130/78 Pulse Rate: 93 Temperature: 97.7 F Mental Status: Alert & Oriented Pain level:: 0 Nausea and/or vomitting:: None Intake, IV Amount: 0
[2022-05-14 07:56] VITALS: BP 130/78; PULSE 93; TEMP 36.5
[2022-05-14 08:00] VITALS: BP 127/71; PULSE 85; RESP 18; TEMP 36.7; O2SAT 100
--- NOTE | 2022-05-14 08:48 | P.PN_ITS ---
Subjective *Date: 05/14/22 *Time: 08:48 Interval history: Patient reports decreased pain was able to sleep on left upper extremity decreased swelling. Overall feels better. Ortho Exam (Inpt) Vital signs and Labs for Last 24 Hours: Temp Pulse Resp BP Pulse Ox 98.0 F 85 18 127/71 100 05/14/22 08:00 05/14/22 08:00 05/14/22 08:00 05/14/22 08:00 05/14/22 08:00 Laboratory Results - last 24 hr 05/13/22 05:20: ESR 132 H 05/13/22 12:13: Vancomycin Trough 17.1 H 05/14/22 06:21: WBC 7.2, RBC 3.89 L, Hgb 10.6 L, Hct 32.9 L, MCV 84.5, MCH 27.3, MCHC 32.3, RDW 14.9, Plt Count 505 H, MPV 7.3 L, Neut % (Auto) 57.5, Lymph % (Auto) 33.0, [place] % (Auto) 6.7, Eos % (Auto) 1.6, Baso % (Auto) 1.2, Neut # (Auto) 4.1, Lymph # (Auto) 2.4, [place] # (Auto) 0.5, Eos # (Auto) 0.1, Baso # (Auto) 0.1 05/14/22 06:21: Sodium 139, Potassium 4.3, Chloride 107, Carbon Dioxide 27, Anion Gap 9.3, BUN 8, Creatinine 0.60, Estimated Creat Clear 168, Estimated GFR 120, Est GFR ( Amer) 145, Glucose 89, Calcium 8.7, Total Bilirubin < 0.1 L, AST 54 H, ALT 108 H, Alkaline Phosphatase 244 H, Total Protein 6.9, Albumin 3.1 L, Globulin 3.8 H, Albumin/Globulin Ratio 0.8 L I & O for Labs for Last 24 Hours: Intake & Output 05/11/22 05/12/22 05/13/22 05/14/22 23:59 23:59 23:59 23:59 Intake Total 4025 / 4025 240 / 240 980 / 980 840 / 840 Output Total 0 / 0 0 / 0 400 / 400 0 / 0 Balance 4025 / 4025 240 / 240 580 / 580 840 / 840 Weight 166 lb 8 oz 164 lb 8 oz 167 lb 166 lb 2 oz Microbiology Reports for the Last 24 Hours: Microbiology 05/13/22 13:45 Wrist - Left Gram Stain - Final Findings:: Left upper extremity: Dressing in place no pain with passive stretch of the fingers improved swelling of the hand and antecubital area. Assessment and Plan *Assessment and plan (1) Cellulitis of left upper extremity: Status: Acute Category: Medical Code(s): L03.114 - Cellulitis of left upper limb (2) IVDU (intravenous drug user): Status: Inactive Category: Social Hx Code(s): F19.90 - Other psychoactive substance use, unspecified, uncomplicated (3) Abscess of left upper extremity: Status: Acute Category: Medical Code(s): L02.414 - Cutaneous abscess of left upper limb Plan Patient status post irrigation and debridement yesterday there were superficial abscess at the wrist. This did not penetrate fascial layers of muscles in the deep layers of the forearm. Instructed patient today in regards to wound care. She will follow-up in the clinic 2 weeks for stitch removal.
--- NOTE | 2022-05-14 10:24 | EXP.DC.SUM ---
General Admission date:: 05/09/22 Discharge date: 05/14/22 HPI HPI HPI: This is a 27-year-old female that presents to [facility] emergency department after leaving the ED AMA yesterday. Her past medical history is significant for methamphetamine dependence and intravenous drug use disorder, tobacco dependence, kidney stones and medical noncompliance.? She reports left forearm pain that started after injecting methamphetamine into her arm I missed the vein. ? She reports injecting methamphetamines 05/07/2022 and developed redness and swelling to her left forearm.? She describes associated increasing edema and erythema with excoriations. She reports that it is painful to lift her arm. She reports associated fever and chills but no nausea, vomiting or diarrhea. She reports no confusion or hallucinations. She is started experiencing a croupy cough but no acute dyspnea. She reports that she is unvaccinated to COVID?19 or influenza. She describes a chronic history of illicit drug use and intravenous drug use. She has 3 children that have been removed from her custody secondary to the chronicity of her addiction. The children ages are 7, 4 and 2. In the ED a CT of the left upper extremity did not identify an abscess. Her CRP and ESR were elevated and she has a leukocytosis. Her urine drug screen is positive for methamphetamines and negative for opioids. Electrolytes and renal function are normal. Her hCG is negative. Her lactic acid was negative. Blood cultures have been acquired on both ED presentations. CTA of the chest shows left lower lobe septic emboli. She has received IV vancomycin and Rocephin with no adverse events. Hospital Course Hospital Course Hospital Course: 27-year-old with history of IV drug use.? Presented with sepsis.? Found to have abs chest and left wrist and inflammation/cellulitis of forearm. Responded to IV antibiotics. Initial blood culture grew strep pyogenes. Negative blood culture as of 05/09. Orthopedics was consulted, abscess drained. Will need to follow-up as an outpatient with Ortho. Plan to complete 14 days total of antibiotics after negative blood culture. Discharged on oral antibiotics. Hemodynamically stable. Problems addressed as follows: Left upper extremity cellulitis Strep pyogenes bacteremia Thrombophlebitis of cephalic vein ? Admitted for sepsis secondary to cellulitis and bacteremia. Imaging of left upper extremity identified seroma/collection at rest, MRI specified abscess for seroma. Was started on IV antibiotics. Initial blood cultures positive, responded well to IV antibiotics including vancomycin and Zosyn. Blood cultures returned negative as of 05/09. No concern for infection in bone or joint. Endocarditis was evaluated, negative echocardiogram for vegetations. Plan to complete 14 days of antibiotics starting 05/09. Transition to Zyvox at discharge for oral therapy. Medications provided via meds to beds at discharge. Orthopedics was consulted during admission, surgery/left forearm I&D and washout performed on 05/13. Abscess drained along with exploration of forearm showing no further infection or myositis. Wounds closed, simple wound care with dry gauze. Follow-up in 2 weeks with orthopedics for evaluation of wound. Continue Toradol for pain control. Stable for discharge home from medicine and orthopedic standpoint. 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 Tobacco dependence?tobacco cessation education, nicotine replacement therapy Encourage patient to establish with primary care. For now we will have her follow-up with orthopedics. Addressed discharge needs, patient lives with family, has chandrakant
--- NOTE | 2022-05-14 10:44 | HMH.PHAINT1 ---
Pharmacy Intervention Comments: Discharge counseling completed at bedside with the patient. Discussed new medications (ketorolac and linezolid) including indication and possible side effects/mitigation strategies for each. Patient verbalized understanding and has no questions or concerns at this time.
--- NOTE | 2022-05-18 13:07 | CARE MANAGER ---
Attempted to contact patient related hospital discharge x 2. No answer.
== END 2022-05-14 11:10 | disposition home or self-care (01) | DRG 872 ==
LOC: ER 16:07 → 2ND 17:38
PROVIDERS: Orthopaedic Surgery; Admitting Provider Family Medicine; Emergency Provider Emergency Medicine; Visit Provider Internal Medicine Adolescent Medicine
PROC: 0X9H0ZZ Drainage of Left Wrist Region, Open Approach (ICD-10-PCS; principal; 2022-05-13 12:00)
DX: A40.0 Sepsis due to streptococcus, group A (principal); L03.114 Cellulitis of left upper limb; I82.602 Acute embolism and thrombosis of unspecified veins of left upper extremity; F15.20 Other stimulant dependence, uncomplicated; Z28.310 Unvaccinated for COVID-19; I80.8 Phlebitis and thrombophlebitis of other sites; Z71.6 Tobacco abuse counseling
CPT/HCPCS: 10061; 36569; 36410; 36415; 71045; 71275; 73090; 73110; 73201; 73218; 80048; 80053; 80202; 80305; 81001; 83605; 83735; 84145; 84703; 85007; 85025; 85610; 85651; 86140; 87040; 87070; 87075; 87077; 87081; 87086; 87088; 87186; 87205; 93005; 93306; 96365; 96366; 96367; 96375; 99285; C1751; C9803; J2020; J2405; J2543; J3370; Q9967; U0003; U0005